=== PATIENT | female | born 1965 | race Caucasian/White ===

== ENCOUNTER 2025-02-01 10:44 | Inpatient (IN) | payer OTHER, SELFPAY ==
[2025-02-01] VITALS (8 sets, daily range): BP systolic 128–160; BP diastolic 68–78; PULSE 54–82; RESP 14–20; TEMP 36.6–36.8; O2SAT 96–98; BMI 18.4
--- NOTE | ~2025-02-01 | XR_ITS ---
EXAMINATION: XR CHEST 1 VIEW HISTORY: sob, swollen legs COMPARISON: There are no prior studies available for comparison. FINDINGS: Two AP portable views of the chest performed at 1:20 PM are submitted. The patient is rotated to the left. The lungs are expanded and clear. There is no pleural effusion, pneumothorax, or pulmonary vascular congestion. The heart is normal in size. There is dextroscoliosis. XR/XR chest 1V IMPRESSION: Clear lungs. Electronically signed by: Ephraim Curtis MD 02/01/2025 01:20 PM MARY
--- NOTE | ~2025-02-01 | US_ITS ---
EXAMINATION: US TRIPLEX LOWER EXTREMITY, BILATERAL CLINICAL INFORMATION: Bilateral lower extremity swelling. COMPARISON: None available. TECHNIQUE: Color-flow triplex imaging with spectral analysis and compression Doppler were performed on the bilateral lower extremities. FINDINGS: Respiratory variation, normal compression and augmented flow are noted throughout the bilateral lower extremities. The visualized common femoral vein, superficial femoral vein, profunda femoral vein, popliteal vein and midcalf peroneal and posterior tibial venous segments show no evidence of deep venous thrombosis bilaterally. There is no Velásquez's cyst. There are reactive appearing lymph nodes in the proximal bilateral thigh regions. US/US venous duplex LE BI IMPRESSION: No evidence of deep venous thrombosis involving the bilateral lower extremities. Electronically signed by: Michael Lynch MD 02/01/2025 02:50 PM MARY
--- NOTE | ~2025-02-01 | CT_ITS ---
CLINICAL HISTORY: + dimer CT angiography chest with contrast. 3D Postprocessing. Comparison: None provided Findings: Calcified coronary atherosclerotic disease. The thoracic aorta is normal caliber. No main or segmental pulmonary emboli identified. Matted lower thoracic paratracheal lymphadenopathy. Hiatal hernia. Mild centrilobular lucencies predominantly upper lobes. No active inflammatory changes. Mild calcified atherosclerotic disease of the abdominal aorta. The bones are intact. Thoracic dextroscoliosis. IMPRESSION: 1. Matted lower thoracic paratracheal reactive lymphadenopathy. 2. Mild centrilobular emphysema. 3. Calcified coronary atherosclerotic disease. 4. Hiatal hernia. 5. Thoracic dextroscoliosis. 6. No main or segmental pulmonary emboli identified This document has been electronically signed by: Reynaldo Casey MD on 02/01/2025 18:26:57
--- NOTE | 2025-02-01 12:03 | ED_ITS ---
HPI - Psych General Chief Complaint: Psychiatric Symptoms Stated Complaint: crisis Time Seen by Provider: 02/01/25 11:54 Source: patient Mode of arrival: ambulatory Limitations: no limitations History of Present Illness ED Provider: JERI Turner HPI Narrative: This is a 59-year-old female past medical history significant for anxiety, depression, substance use disorder who presents to the emergency department with anxiety, depression status post losing her daughter, she tells me that her daughter recently passed secondary to cancer. Since then she has been using drugs she reports using heroin 1-2 bundles per day she last use this morning. She also reports she has been having lower extremity swelling it worsens throughout the day and it is present to bilateral lower extremities. She denies suicidal or homicidal ideation. Denies auditory and visual hallucinations. Denies chest pain, shortness of breath, fevers, chills, nausea, vomiting, abdominal pain, headache, vision changes, dizziness and weakness. Related Data Allergies Allergy/AdvReac Type Severity Reaction Status Date / Time codeine (CODEINE) Allergy Unknown HIVES Verified 02/01/25 11:03 Penicillins Allergy Unknown RASH Unverified 02/01/25 11:03 Review of Systems 2 Review of Systems: Yes all other systems are reviewed and are negative PMFSH Past Medical History Attestation statement: The following information was validated with the patient. Source: old records reviewed and nursing notes reviewed Social History Social History Smoked in Last 30 Days: No Use of substances other than those prescribed or required for medical reasons: Yes Substance Use Type: Heroin Substance Use Frequency: Occasionally Last Used Substance: Just Prior to Admission Advance Directives: No Advance Directives Information Provided: Yes Do you have a plan to hurt others: No Plan Patient : No Physical Exam 2 Exam: Exam: Appearance: Alert.? Oriented X3.? No acute distress.? Head: Normocephalic, atraumatic, no step-offs or deformities Eyes: Pupils equal, round and reactive to light.? ENT: Pharynx normal.? Neck: Normal inspection.? Neck supple.? CVS: Normal heart rate and rhythm.? Pulses normal.? Respiratory: No respiratory distress.? Breath sounds normal.? Abdomen: Soft and nontender.? Skin: Skin warm and dry.? Normal skin color.? Normal skin turgor.? Extremities: 2+ nonpitting edema to bilateral lower extremities with dependent rubor.? No calf ttp. 5/5 strength to bilateral upper and lower extremities Neuro: Oriented X 3.? No motor deficit.? No sensory deficit. CN 2-12 intact Vital Signs: Vital Signs: Last Vital Signs Temp 98.3 F 02/01/25 19:25 Pulse 76 02/01/25 19:25 Resp 18 02/01/25 19:25 BP 146/72 H 02/01/25 19:25 Pulse Ox 98 02/01/25 19:25 O2 Del Method Room Air 02/01/25 19:25 BMI result Body Mass Index 18.4 Vital signs stable Course Reevaluation(s) Reevaluation #1: CBC with leukopenia and normocytic anemia. No previous labs to compare with. Chemistry no acute findings eating intervention. Patient has elevated AST ALT. And a markedly elevated pro BNP. D-dimer is elevated at 405. I did add a troponin, EKG and chest x-ray. Time: 13:02 Reevaluation #2: Patient's EKG shows bradycardia with a rate of 40, there is a second-degree AV block Mobitz type 1. There is ST elevation in the lateral leads most consistent with J-point elevation. Troponin is negative unlikely ACS. Chest x-ray is unremarkable. Time: 14:04 Reevaluation #3: Sign-out will be given to my colleague Zina PAUL Time: 16:36 Additional Reevaluation(s): 1920--BNP elevated 2017.7 > patient states she was told she had CHF a long time ago at [facility], not currently on any diuretics. States her bilateral lower extremity edema is unchanged/actually improved since recently taking prednisone. Lower extremities do not appear acutely cellulitic. No hypoxia. Denies any SOB at present. CXR is clear. CTA is negative for PE. Patient pending CARE team. We will start on Lasix p.o. 20 mg. Physician observation initiated as patient needs more time to be evaluated by CARE team CT angio chest PE protocol IMPRESSION: 1. Matted lower thoracic paratracheal reactive lymphadenopathy. 2. Mild centrilobular emphysema. 3. Calcified coronary atherosclerotic disease. 4. Hiatal hernia. 5. Thoracic dextroscoliosis. 6. No main or segmental pulmonary emboli identified > no previous EKGs to compare. Patient has not been to [facility] since 2018. No EKGs there either. Troponin is unremarkable. -Patient lui be admitted to inpatient psych Medications Administered Generic Name Dose Route Start Last Admin Trade Name Freq PRN Reason Stop Dose Admin Furosemide 20 mg 02/01/25 19:30 02/01/25 20:33 Furosemide 20 Mg Tablet PO 20 mg DAILY CLIFF Administration Protocol Discontinued Medications Generic Name Dose Route Start Last Admin Trade Name Freq PRN Reason Stop Dose Admin Iohexol 100 ml 02/01/25 17:35 02/01/25 17:36 Iohexol 350 Mg/Ml 100 Ml Infus..Btl IV 02/01/25 17:36 65 ml ONCE ONE Administration Medical Decision Making Medical Decision Making [facility] Narrative: 1205 59-year-old female presents with anxiety, depression and relapsed on heroin status post the of her daughter. Physical exam with 2+ nonpitting edema to bilateral lower extremities with dependent rubor. Palpable pulses bilaterally. History and physical exam consistent with complicated grief with substance use disorder. Lower extremity edema likely in the setting of gravity dependent edema. Unlikely arterial or venous occlusion no signs of acute threat to limb. No chest pain or shortness of breath to indicate pulmonary embolism. I do not suspect ACS. Plan labs, urine Differential Diagnosis Differential Diagnoses: The differential diagnosis associated with the presentation includes (History and physical exam consistent with complicated grief with substance use disorder. Lower extremity edema likely in the setting of gravity dependent edema. Unlikely arterial or venous occlusion no signs of acute threat to limb. No chest pain or shortness of breath to indicate pulmonary embol) Admission/Observation Consideration of admission/observation: Escalation of care including admission/observation considered Lab Data [facility] Lab Attestation statement: I reviewed the patient's lab results. 02/01/25 12:12 02/01/25 12:12 Labs: Lab Results 02/01/25 02/01/25 Range/Units 12:12 18:47 WBC 3.7 L (4.8-10.8) X10*3/uL RBC 3.72 L (4.20-5.50) X10*6/uL Hgb 10.9 L (12.0-16.0) g/dl Hct 32.7 L (37.0-47.0) % MCV 87.9 (80.0-98.0) fL MCH 29.3 (27.0-33.0) pg MCHC 33.3 (31.0-35.0) g/dl RDW 13.2 (11.0-16.0) % Plt Count 132 L (160-400) X10*3/uL MPV 9.5 (9.4-12.3) fL Immature Gran % (Auto) 0.3 (0.0-0.4) % Neut % (Auto) 42.2 L (45-73) % Lymph % (Auto) 41.4 H (20-40) % Terrell % (Auto) 9.4 (2-11) % Eos % (Auto) 5.9 H (0-4) % Baso % (Auto) 0.8 (0-2) % Lymph # (Auto) 1.5 (1.2-4.9) X10*3/uL Terrell # (Auto) 0.4 (0.1-1.2) X10*3/uL Eos # (Auto) 0.2 (0.0-0.4) X10*3/uL Baso # (Auto) 0.0 (0.0-0.2) X10*3/uL Abs Immat Gran (auto) 0.01 (0.00-0.03) X10*3/uL Absolute Neuts (auto) 1.6 L (2.0-8.3) x10*3/uL Absolute Nucleated RBC 0.000 (0.0-0.012) X10*3/uL Nucleated RBC % (auto) 0.0 (0.0-0.2) /100WBC D-Dimer High Sensitivty 405 NG/ML Sodium 137 (135-145) mmol/L Potassium 3.7 (3.3-5.1) mmol/L Chloride 107 (96-108) mmol/L Carbon Dioxide 22 (22-29) mmol/L Anion Gap 12 (12-20) BUN 11 (9-16) mg/dL Creatinine 0.67 (0.5-1.4) mg/dL Estim Creat Clear Calc 84.8 Estimated GFR > 60 Random Glucose 162 H (60-115) mg/dL Calcium 8.6 (8.4-10.2) mg/dL Magnesium 1.8 (1.6-2.6) mg/dL Total Bilirubin 0.6 (0.0-1.0) mg/dL AST 74 H (5-31) U/L ALT 46 H (0-31) U/L Alkaline Phosphatase 166 H (39-117) U/L Troponin I High Sens 3.1 (<3.5-17.0) ng/L NT-Pro-B Natriuret Pep 2018.7 H (<300) pg/mL Total Protein 7.2 (6.5-8.0) g/dL Albumin 2.9 L (3.5-5.0) g/dL Urine Color Yellow Urine Appearance Clear Urine pH 7.0 (5.0-9.0) Ur Specific [place] 1.020 (1.005-1.025) Urine Protein Negative (Neg-Trace) mg/dL Urine Glucose (UA) Negative (Negative) mg/dL Urine Ketones Negative (Negative) mg/dL Urine Blood Negative (Negative) Urine Nitrite Negative (Negative) Ur Leukocyte Esterase Negative (Negative) Salicylates < 5.0 L (15-30) mg/dL Urine Opiates Screen Not Detected (Not Detect) Ur Buprenorphine Scrn Not Detected (Not Detect) ng/mL Ur Oxycodone Screen Not Detected (Not Detect) ng/mL Urine Methadone Screen Not Detected (Not Detect) ng/mL Urine Fentanyl Screen POSITIVE H (Not Detect) Acetaminophen < 3 (<30) mcg/mL Ur Barbiturates Screen Not Detected (Not Detect) Ur Phencyclidine Scrn Not Detected (Not Detect) Ur Amphetamines Screen Not Detected (Not Detect) U Benzodiazepines Scrn Not Detected (Not Detect) Urine Cocaine Screen POSITIVE H (Not Detect) U Marijuana (THC) Screen Not Detected (Not Detect) Independent Interpretation I performed an independent interpretation of an: EKG (bradycardia with a rate of 40, there is a second-degree AV block Mobitz type 1. There is ST elevation in the lateral leads most consistent with J-point elevation. non diagnostic for cc ) Critical Care Time Critical Care Time Critical Care Time: Yes Total Critical Care Time: 35 Attestation: I attest to this time spent taking care of the patient, obtaining history, physical, reviewing labs, imaging, treatment of patients condition +/- specialist/hospitalist consult +/- procedure Discharge Plan Discharge Clinical Impression: Steven I, Swelling of both lower extremities, Substance abuse, Depression Patient Disposition: Admitted As [facility] Last Done: 02/01/25 11:35 Admission Worksheet (ED) Last Done: 02/01/25 20:36
[2025-02-01 12:16] LABS: MANUAL DIFF FLAG NO
[2025-02-01 12:27] LABS: Hematocrit 32.7 % (37.0-47.0); Hemoglobin 10.9 g/dl (12.0-16.0); Imm Gran Abs Auto 0.01 X10*3/uL (0.00-0.03); Imm Gran Pct Auto 0.3 % (0.0-0.4); Lymphocytes Absolute Auto 1.5 X10*3/uL (1.2-4.9); Mean Corpuscular HGB Conc 33.3 g/dl (31.0-35.0); Mean Corpuscular Hemoglobin 29.3 pg (27.0-33.0); Mean Corpuscular Volume 87.9 fL (80.0-98.0); NRBC Abs Auto 0.000 X10*3/uL (0.0-0.012); NRBC Pct Auto 0.0 /100WBC (0.0-0.2); Platelet Count 132 X10*3/uL (160-400); Red Blood Count 3.72 X10*6/uL (4.20-5.50); White Blood Count 3.7 X10*3/uL (4.8-10.8)
[2025-02-01 12:37] LABS: Acetaminophen LAB < 3 mcg/mL (<30); Alanine Aminotransferase 46 U/L (0-31); Albumin Level 2.9 g/dL (3.5-5.0); Alkaline Phosphatase 166 U/L (39-117); Anion Gap 12 (12-20); Aspartate Amino Transferase 74 U/L (5-31); Blood Urea Nitrogen 11 mg/dL (9-16); Calcium 8.6 mg/dL (8.4-10.2); Carbon Dioxide 22 mmol/L (22-29); Chloride 107 mmol/L (96-108); Creatinine Clr Calc Pharmacy 84.8; Estimated Glomerular Filt Rate > 60; Magnesium 1.8 mg/dL (1.6-2.6); Potassium 3.7 mmol/L (3.3-5.1); Salicylate < 5.0 mg/dL (15-30); Sodium 137 mmol/L (135-145); Total Protein 7.2 g/dL (6.5-8.0)
[2025-02-01 12:44] LABS: NT Pro B Type Natriuretic Pept 2018.7 pg/mL (<300)
[2025-02-01 12:58] LABS: D Dimer High Sensitivity 405 NG/ML
--- NOTE | 2025-02-01 13:01 | ECG_ITS ---
Test Reason : SOB Blood Pressure : */* mmHG Vent. Rate : 40 BPM Atrial Rate : 54 BPM P-R Int : * ms QRS Dur : 96 ms QT Int : 538 ms P-R-T Axes : 81 69 54 degrees QTcB Int : 438 ms Sinus bradycardia with 2nd degree A-V block (Mobitz I) Abnormal ECG No previous ECGs available Referred By: Vi Turner Electronically Signed By: Yann Gaxiola
[2025-02-01 13:28] LABS: Troponin-I High Sensitivity 3.1 ng/L (<3.5-17.0)
[2025-02-01] MEDS: iohexoL 350 MG/ML 100 ML INFUS..BTL IV (17:36)
[2025-02-01 19:05] LABS: Cannabinoid Screen Urine Not Detected (Not Detect)
[2025-02-01 19:14] LABS: Appearance Urine Clear; Glucose Urine UA Negative (Negative); PH 7.0 (5.0-9.0); Specific Gravity - Urine 1.020 (1.005-1.025)
--- NOTE | 2025-02-01 20:06 | PC.NURSE ---
med rec completed with pt, does not take any home medications at this time
--- NOTE | 2025-02-01 20:38 | MHC.CARE ---
Pt made aware she was being admitted to , Pt was receptive. T/W provided Pt bereavement resources for [facility] and [facility].
--- NOTE | 2025-02-01 21:33 | PHA.MEDREC ---
Addendum entered by Britney Yi RPh 02/01/25 21:34: Reviewed by [facility] Original Note: Pharmacy Consult ? Medication Reconciliation Pharmacy has completed the medication reconciliation. Patient states she is not on any medications.
--- NOTE | 2025-02-01 21:57 | PC.NURSE ---
pt on the phone talking to a friend. 10 minutes after she hung up she c/o w/d sx. COWS completed score of 10. pt medicated per MAR. pt also reporting menopause sx as well contributing to sweating and restlessness.
--- NOTE | 2025-02-01 22:28 | PC.NURSE ---
2100 baclofen unavailable in ED. pt moving upstairs to M5
[2025-02-02] MEDS: Magnesium Hydrox/Alum Hydrox 30 ML ORAL.SUSP PO (03:50)
--- NOTE | 2025-02-02 05:22 | PC.NURSE ---
Patient immediately vomited up a 1 mg Ativan administered at this time.
--- NOTE | 2025-02-02 05:52 | PC.ADMIT ---
Karen Bob was admitted at 2230 to on a CV with 15 minute checks from the [facility]. She recently lost her daughter to cancer. This caused heightened depression and anxiety, as well as a relapse on fentanyl (which she thought was heroin.) Her tox screen was also positive for cocaine, which she denies using. She has scoliosis, and bilateral lower leg edema and reddening. She has bradycardia and a Mobitz I AV block. She is amenable to a flu shot, and accepts NRT and Quitworks as she smokes up to 1 ppd. She is struggling with nausea, vomiting, and diarrhea due to her withdrawal. Zofran was not effective. Please expedite Recovery Program to ensure she is given MAT as soon as possible to relieve her symptoms.
--- NOTE | 2025-02-02 07:05 | HO.PSYADMNOT ---
HPI Date of Service: 02/02/25 Chief Complaint: Worsening depression and anxiety Sources of Information: patient interviewed, chart reviewed and crisis/core team assessment reviewed HPI Subjective Notes: Conditional Voluntary Medical Problems Affecting Mental Status: No Narrative: As per ED Provider Note 02/01/25: 59-year-old female past medical history significant for anxiety, depression, substance use disorder who presents to the emergency department with anxiety, depression status post losing her daughter, she tells me that her daughter recently passed secondary to cancer. Since then she has been using drugs she reports using heroin 1-2 bundles per day she last use this morning. She also reports she has been having lower extremity swelling it worsens throughout the day and it is present to bilateral lower extremities. She denies suicidal or homicidal ideation. Denies auditory and visual hallucinations. SRIKANTHS rufina 02/01/25: Lost only child after 5 year cancer padilla. Now has custody of 2 grandchildren aged 14 and 10. Relapsed 6 weeks ago after being sober since 2002. No outpatient services. Today: Patient presents with opiate withdrawal symptoms. Vomiting. Body aches, rhinorrhea etc.. Endorses feeling depressed, poor sleep, energy appetite motivation. Denies active SI. Has not been caring for herself well and does have poor self-care . Denied HI. Denied psychosis.. There is some limited engagement in evaluation due to current withdrawal symptoms . Endorses relapsing with heroin by intravenous use around 6 weeks ago. Tox screen positive for cocaine but reports that is not something she usually uses and therefore likely a contaminant with heroin or fentanyl that patient was injecting. Reports wanting help with therapy and medications if indicated. Reports being open to Suboxone or methadone long-term, but wants to get through acute detox 1st. Did show some response to methadone 40 mg 1 time dose along with comfort medications including clonidine, Zofran etc.. Is open to rehab services as per care's evaluation. Significant stressor was the loss of her daughter to cancer in April 2024. custody 14-year-old and 10-year-old grand children. Living alone. Regarding grandchildren, reports they are currently staying with their biological father. Past Psychiatric History: Denied. No current providers. Medical Evaluation Reviewed: Yes PMFSH Social History: Lives alone. Unemployed. No legal issues. Daughter from cancer in April 2024 and patient has custody of 14-year-old and 10-year-old grand children are currently staying with their biological father while patient is in hospital. Substance History: opiate use disorder. Was sober from 2002 up until 6 weeks ago. Using 1-2 bundles per day intravenously. Trauma History: Lost daughter to cancer in April this year Diagnostics Vital Signs (24Hr): Vital Signs - 24 hr 02/01/25 10:55 02/01/25 11:35 02/01/25 13:51 Temperature 97.8 F 98.2 F Pulse Rate 54 78 79 Respiratory Rate 18 14 15 Blood Pressure 153/68 H 132/74 128/72 Pulse Oximetry 96 97 97 Oxygen Delivery Method Room Air Room Air Room Air 02/01/25 17:46 02/01/25 19:12 02/01/25 19:25 Temperature 98.3 F Pulse Rate 82 80 76 Respiratory Rate 16 14 18 Blood Pressure 132/74 137/78 146/72 H Pulse Oximetry 97 97 98 Oxygen Delivery Method Room Air Room Air Room Air 02/01/25 21:56 Temperature Pulse Rate 74 Respiratory Rate 20 Blood Pressure 160/75 H Pulse Oximetry 98 Oxygen Delivery Method Room Air BMI result Body Mass Index 18.4 Labs 02/01/25 12:12 02/01/25 12:12 Labs: Laboratory Results - last 48 hr 02/01/25 02/01/25 12:12 18:47 WBC 3.7 L RBC 3.72 L Hgb 10.9 L Hct 32.7 L MCV 87.9 MCH 29.3 MCHC 33.3 RDW 13.2 Plt Count 132 L MPV 9.5 Immature Gran % (Auto) 0.3 Neut % (Auto) 42.2 L Lymph % (Auto) 41.4 H Cottle % (Auto) 9.4 Eos % (Auto) 5.9 H Baso % (Auto) 0.8 Lymph # (Auto) 1.5 Cottle # (Auto) 0.4 Eos # (Auto) 0.2 Baso # (Auto) 0.0 Abs Immat Gran (auto) 0.01 Absolute Neuts (auto) 1.6 L Absolute Nucleated RBC 0.000 Nucleated RBC % (auto) 0.0 D-Dimer High Sensitivty 405 Sodium 137 Potassium 3.7 Chloride 107 Carbon Dioxide 22 Anion Gap 12 BUN 11 Creatinine 0.67 Estim Creat Clear Calc 84.8 Estimated GFR > 60 Random Glucose 162 H Calcium 8.6 Magnesium 1.8 Total Bilirubin 0.6 AST 74 H ALT 46 H Alkaline Phosphatase 166 H Troponin I High Sens 3.1 NT-Pro-B Natriuret Pep 2018.7 H Total Protein 7.2 Albumin 2.9 L Urine Color Yellow Urine Appearance Clear Urine pH 7.0 Ur Specific [place] 1.020 Urine Protein Negative Urine Glucose (UA) Negative Urine Ketones Negative Urine Blood Negative Urine Nitrite Negative Ur Leukocyte Esterase Negative Salicylates < 5.0 L Urine Opiates Screen Not Detected Ur Buprenorphine Scrn Not Detected Ur Oxycodone Screen Not Detected Urine Methadone Screen Not Detected Urine Fentanyl Screen POSITIVE H Acetaminophen < 3 Ur Barbiturates Screen Not Detected Ur Phencyclidine Scrn Not Detected Ur Amphetamines Screen Not Detected U Benzodiazepines Scrn Not Detected Urine Cocaine Screen POSITIVE H U Marijuana (THC) Screen Not Detected Imaging Radiology Impressions: ITS Impressions Chest X-Ray 02/01/25 13:10 IMPRESSION: Clear lungs. Electronically signed by: Ephraim Curtis MD 02/01/2025 01:20 PM EST RP Venous Duplex 02/01/25 13:56 IMPRESSION: No evidence of deep venous thrombosis involving the bilateral lower extremities. Electronically signed by: Michael Lynch MD 02/01/2025 02:50 PM EST RP Meds/Allergies Meds Home Medications ?Medication ?Instructions ?Recorded ?Confirmed ?Type No Known Home Meds 02/01/25 02/01/25 History Allergies Allergies Allergy/AdvReac Type Severity Reaction Status Date / Time codeine (CODEINE) Allergy Unknown HIVES Verified 02/01/25 11:03 Penicillins Allergy Unknown RASH Verified 02/02/25 11:19 Mental Status Exam Mental Status Exam Narrative: In bed. Hospital clothing. Poor self-care. Obvious opiate withdrawal with rhinorrhea, gooseflesh, nausea and vomiting. Endorses depression. No SI. No HI. No agitation. No psychosis. Insight and judgment okay and wants help Assessment & Plan Assessment & Plan (1) Opioid use disorder: Status: Acute Code(s): F11.90 - Opioid use, unspecified, uncomplicated (2) Depression: Status: Acute Code(s): F32.A - Depression, unspecified Plan 59-year-old female, voluntary admission for evaluation of depression, inability to care for self, opioid use disorder in this context of significant psychosocial stressors. No outpatient providers. Eager for engagement help. Currently in active opiate withdrawals. Will place on methadone taper. Review need for psychotropic medications when add acute detox. Is open to substance rehab program. Patient educated on: substance abuse Informed Consent: understands Reason for continued inpatient stay Substantial Risk for: inability to function Statement Statement: I have reviewed the history and physical and performed a pertinent examination on my patient. No changes have occurred unless specified. If the History and Physical was not performed prior to admission, the Hospitalist's service will be consulted for completing the admission physical. Time Spent With Patient Time: Total time managing care of this patient today ____ minutes.
[2025-02-02 08:00] VITALS: BP 186/83; PULSE 66; RESP 18; TEMP 36.6; O2SAT 97
[2025-02-02 08:38] VITALS: BP 186/63
[2025-02-02] MEDS: methADONE HCl 20 MG/2 ML ORAL.CONC 40 MG PO (08:58)
[2025-02-02 16:18] VITALS: BP 142/76; PULSE 96; RESP 18
[2025-02-02 20:00] VITALS: BP 157/77; PULSE 107; RESP 20; TEMP 37.7; O2SAT 97
--- NOTE | 2025-02-03 | ECG_ITS ---
Test Reason : Seizure Blood Pressure : */* mmHG Vent. Rate : 113 BPM Atrial Rate : 113 BPM P-R Int : 162 ms QRS Dur : 86 ms QT Int : 338 ms P-R-T Axes : 87 87 77 degrees QTcB Int : 463 ms Sinus tachycardia Right atrial enlargement Borderline ECG When compared with ECG of 01-Feb-2025 13:44, Sinus rhythm is no longer with 2nd degree A-V block (Mobitz I) Vent. rate has increased by 73 bpm T wave inversion no longer evident in Anterior leads Referred By: Chayo Calderon Electronically Signed By: Yann Gaxiola
[2025-02-03 02:01] VITALS: BP 148/70; PULSE 100
[2025-02-03 08:00] VITALS: BP 123/76; PULSE 123; RESP 20; TEMP 36.9; O2SAT 97
--- NOTE | 2025-02-03 08:01 | HO.PSYCHPN ---
Subjective Subjective Date of Service: 02/03/25 Reason For Visit: Worsening depression and anxiety Diagnostics Vital Signs (24Hr): Vital Signs - 24 hr 02/02/25 08:38 02/02/25 16:18 02/02/25 20:00 Temperature 99.9 F Pulse Rate 96 107 H Respiratory Rate 18 20 Blood Pressure 186/63 H 142/76 H 157/77 H Pulse Oximetry 97 Oxygen Delivery Method Room Air 02/03/25 02:01 02/03/25 08:00 Temperature 98.4 F Pulse Rate 100 123 H Respiratory Rate 20 Blood Pressure 148/70 H 123/76 Pulse Oximetry 97 Oxygen Delivery Method Room Air BMI result Body Mass Index 18.4 Labs 02/01/25 12:12 02/01/25 12:12 Labs: Laboratory Results - last 48 hr 02/01/25 02/01/25 12:12 18:47 WBC 3.7 L RBC 3.72 L Hgb 10.9 L Hct 32.7 L MCV 87.9 MCH 29.3 MCHC 33.3 RDW 13.2 Plt Count 132 L MPV 9.5 Immature Gran % (Auto) 0.3 Neut % (Auto) 42.2 L Lymph % (Auto) 41.4 H [place] % (Auto) 9.4 Eos % (Auto) 5.9 H Baso % (Auto) 0.8 Lymph # (Auto) 1.5 [place] # (Auto) 0.4 Eos # (Auto) 0.2 Baso # (Auto) 0.0 Abs Immat Gran (auto) 0.01 Absolute Neuts (auto) 1.6 L Absolute Nucleated RBC 0.000 Nucleated RBC % (auto) 0.0 D-Dimer High Sensitivty 405 Sodium 137 Potassium 3.7 Chloride 107 Carbon Dioxide 22 Anion Gap 12 BUN 11 Creatinine 0.67 Estim Creat Clear Calc 84.8 Estimated GFR > 60 Random Glucose 162 H Calcium 8.6 Magnesium 1.8 Total Bilirubin 0.6 AST 74 H ALT 46 H Alkaline Phosphatase 166 H Troponin I High Sens 3.1 NT-Pro-B Natriuret Pep 2018.7 H Total Protein 7.2 Albumin 2.9 L Urine Color Yellow Urine Appearance Clear Urine pH 7.0 Ur Specific Antoine 1.020 Urine Protein Negative Urine Glucose (UA) Negative Urine Ketones Negative Urine Blood Negative Urine Nitrite Negative Ur Leukocyte Esterase Negative Salicylates < 5.0 L Urine Opiates Screen Not Detected Ur Buprenorphine Scrn Not Detected Ur Oxycodone Screen Not Detected Urine Methadone Screen Not Detected Urine Fentanyl Screen POSITIVE H Acetaminophen < 3 Ur Barbiturates Screen Not Detected Ur Phencyclidine Scrn Not Detected Ur Amphetamines Screen Not Detected U Benzodiazepines Scrn Not Detected Urine Cocaine Screen POSITIVE H U Marijuana (THC) Screen Not Detected Imaging Radiology Impressions: ITS Impressions Chest X-Ray 02/01/25 13:10 IMPRESSION: Clear lungs. Electronically signed by: Ephraim Curtis MD 02/01/2025 01:20 PM EST RP Venous Duplex 02/01/25 13:56 IMPRESSION: No evidence of deep venous thrombosis involving the bilateral lower extremities. Electronically signed by: Michael Lynch MD 02/01/2025 02:50 PM EST RP Medications Medications Current Medications Acetaminophen (Acetaminophen 325 Mg Tablet) 650 mg PO Q6H PRN PRN Reason: Headache/Pain, Scale 1-10 Last Admin: 02/02/25 21:59 Dose: 650 mg Al Hydroxide/Mg Hydroxide (Magnesium Hydrox/Alum Hydrox 30 Ml Oral.Susp) 30 ml PO Q6H PRN PRN Reason: Heartburn/Nausea Last Admin: 02/02/25 03:50 Dose: 30 ml Baclofen (Baclofen 10 Mg Tablet) 10 mg PO BID CLIFF Last Admin: 02/02/25 22:00 Dose: 10 mg Clonidine HCl (Clonidine Hcl 0.1 Mg Tablet) 0.1 mg PO TID PRN; Protocol PRN Reason: Opiate W/D symptoms Last Admin: 02/03/25 01:11 Dose: 0.1 mg Furosemide (Furosemide 20 Mg Tablet) 20 mg PO DAILY CLIFF; Protocol Last Admin: 02/02/25 08:38 Dose: 20 mg Hydroxyzine HCl (Hydroxyzine Hcl 25 Mg Tablet) 25 mg PO Q6H PRN PRN Reason: mild anxiety Last Admin: 02/03/25 01:11 Dose: 25 mg Magnesium Hydroxide (Milk Of Magnesia 30 Ml Oral.Susp) 30 ml PO DAILY PRN PRN Reason: Constipation Methadone HCl (Methadone Hcl 20 Mg/2 Ml Oral.Conc) 30 mg PO DAILY@0800 ONE Stop: 02/03/25 08:01 Nicotine (Nicotine 21 Mg Patch.Td24) 21 mg TRANSDERMA DAILY PRN PRN Reason: nicotine craving Nicotine Polacrilex (Nicotine Polacrilex 2 Mg Gum) 2 mg BUCCAL Q2H PRN PRN Reason: Nicotine Cravings Olanzapine (Olanzapine 5 Mg Tablet) 5 mg PO BID PRN PRN Reason: agitation/severe anxiety Last Admin: 02/02/25 21:59 Dose: 5 mg Ondansetron HCl (Ondansetron Odt 8 Mg Tab.Rapdis) 8 mg TRANSLINGU Q8H PRN PRN Reason: Nausea and Vomiting Last Admin: 02/03/25 01:11 Dose: 8 mg Trazodone HCl (Trazodone Hcl 50 Mg Tablet) 50 mg PO BEDTIME PRN PRN Reason: Insomnia Last Admin: 02/03/25 01:11 Dose: 50 mg Allergies Allergies Allergy/AdvReac Type Severity Reaction Status Date / Time codeine (CODEINE) Allergy Unknown HIVES Verified 02/01/25 11:03 Penicillins Allergy Unknown RASH Verified 02/02/25 11:19 Assessment & Plan Assessment & Plan (1) Opioid use disorder: Status: Acute Code(s): F11.90 - Opioid use, unspecified, uncomplicated (2) Depression: Status: Acute Code(s): F32.A - Depression, unspecified Plan 59-year-old female, voluntary admission for evaluation of depression, inability to care for self, opioid use disorder in this context of significant psychosocial stressors. No outpatient providers. Eager for engagement help. Currently in active opiate withdrawals. Will place on methadone taper. Review need for psychotropic medications when add acute detox. Is open to substance rehab program. Time Spent With Patient Time: Total time managing care of this patient today ____ minutes.
[2025-02-03 08:15] LABS: Glucose, Whole Blood 138 mg/dL (60-115)
[2025-02-03 08:55] VITALS: BP 125/65; PULSE 88; RESP 16; TEMP 36.3; O2SAT 96
[2025-02-03 09:20] LABS: MANUAL DIFF FLAG NO
[2025-02-03 09:23] LABS: Hematocrit 35.6 % (37.0-47.0); Hemoglobin 11.9 g/dl (12.0-16.0); Imm Gran Abs Auto 0.02 X10*3/uL (0.00-0.03); Imm Gran Pct Auto 0.4 % (0.0-0.4); Lymphocytes Absolute Auto 1.2 X10*3/uL (1.2-4.9); Mean Corpuscular HGB Conc 33.4 g/dl (31.0-35.0); Mean Corpuscular Hemoglobin 29.8 pg (27.0-33.0); Mean Corpuscular Volume 89.0 fL (80.0-98.0); NRBC Abs Auto 0.000 X10*3/uL (0.0-0.012); NRBC Pct Auto 0.0 /100WBC (0.0-0.2); Platelet Count 206 X10*3/uL (160-400); Red Blood Count 4.00 X10*6/uL (4.20-5.50); White Blood Count 5.6 X10*3/uL (4.8-10.8)
--- NOTE | 2025-02-03 09:23 | PC.NURSE ---
After report this morning TW went to check in with patient as she was complaining of weakness and inability to even stand up when trying. She reports she had not eaten in 4 days and has had very little to drink. Provider Dominga notified and asked for Hospitalist consult and labs. Upon returning to pt room to administer Methadone with other RN she was noted sitting up in bed and when she went to take cup she fell backwards onto the bed and became unresponsive. Rapid response called and VS obtained, Provider Kvng Beard Michelle S RN supervisor hairspring fabrication all at bedside. Pt POC 137, and VS 123/78, pulse 128, oxygen saturation on RA 97% and afebrile. IV access 22gauge established to right UE She was noted to be having some myoclonic movement and eye fluttering but team did not feel this was seizure activity. Pupils were equal and reactive 4mm. Shortly after DRIVER EXAMINER called pt became more responsive, able to verbalize and talk, EKG obtained and NSR, transferred to Med/Tele floor and report called once RN care determined for her. Discharged from .
[2025-02-03 09:48] LABS: Troponin-I High Sensitivity 39.4 ng/L (<3.5-17.0)
[2025-02-03 10:03] LABS: Alanine Aminotransferase 39 U/L (0-31); Albumin Level 3.8 g/dL (3.5-5.0); Alkaline Phosphatase 173 U/L (39-117); Anion Gap 14 (12-20); Aspartate Amino Transferase 58 U/L (5-31); Blood Urea Nitrogen 18 mg/dL (9-16); Calcium 9.2 mg/dL (8.4-10.2); Carbon Dioxide 29 mmol/L (22-29); Chloride 106 mmol/L (96-108); Cholesterol 137 mg/dL (<200); Creatinine Clr Calc Pharmacy 71.1; Estimated Glomerular Filt Rate > 60; HDL Cholesterol 57 mg/dL (>40); Potassium 3.3 mmol/L (3.3-5.1); Sodium 146 mmol/L (135-145); Total Protein 8.6 g/dL (6.5-8.0); Triglycerides 65 mg/dL (<150)
[2025-02-03] MEDS: methADONE HCl 20 MG/2 ML ORAL.CONC 30 MG PO (10:04)
[2025-02-03 10:18] LABS: Free T4 (Free Thyroxine) 1.11 ng/dL (0.71-1.85); Thyroid Stimulating Hormone 0.23 uIU/mL (0.32-4.0)
[2025-02-03 10:20] LABS: Folate 6.3 ng/mL (> or = 4.0); Vitamin B12 640 pg/mL (200-900)
--- NOTE | 2025-02-03 10:41 | PM.PSYDC ---
DS: Providers Provider Date of Service: 02/03/25 Date of admission: 02/01/25 20:26 Date of discharge: 02/03/25 Primary care physician: Ashia Antonio NP Consults: 02/01/25 20:28 Addiction Medicine Provider Routine Consulting Provider: Addiction Covering Reason for consultation: Using FEN for a couple moths. Has provider been notified: No DS: Diagnosis Discharge Diagnosis (1) Opioid use disorder: Status: Acute (2) Depression: Status: Acute DS: Medications Discharge Medications Home Medications: Home Medications ?Medication ?Instructions ?Recorded ?Confirmed No Known Home Meds 02/01/25 02/01/25 Data Data Completed and Pending Completed studies during hospitalization [Text1]: 02/01/25 02/01/25 02/03/25 12:12 18:47 08:12 WBC 3.7 L RBC 3.72 L Hgb 10.9 L Hct 32.7 L MCV 87.9 MCH 29.3 MCHC 33.3 RDW 13.2 Plt Count 132 L MPV 9.5 Immature Gran % (Auto) 0.3 Neut % (Auto) 42.2 L Lymph % (Auto) 41.4 H [place] % (Auto) 9.4 Eos % (Auto) 5.9 H Baso % (Auto) 0.8 Lymph # (Auto) 1.5 [place] # (Auto) 0.4 Eos # (Auto) 0.2 Baso # (Auto) 0.0 Abs Immat Gran (auto) 0.01 Absolute Neuts (auto) 1.6 L Absolute Nucleated RBC 0.000 Nucleated RBC % (auto) 0.0 D-Dimer High Sensitivty 405 Sodium 137 Potassium 3.7 Chloride 107 Carbon Dioxide 22 Anion Gap 12 BUN 11 Creatinine 0.67 Estim Creat Clear Calc 84.8 Estimated GFR > 60 POC Glucose 138 H Random Glucose 162 H Estimat Average Glucose Hemoglobin A1c % Lactic Acid Calcium 8.6 Phosphorus Magnesium 1.8 Total Bilirubin 0.6 AST 74 H ALT 46 H Alkaline Phosphatase 166 H Troponin I High Sens 3.1 NT-Pro-B Natriuret Pep 2018.7 H Total Protein 7.2 Albumin 2.9 L Triglycerides Cholesterol LDL Cholesterol, Calc HDL Cholesterol Vitamin B12 Folate TSH Free T4 Urine Color Yellow Urine Appearance Clear Urine pH 7.0 Ur Specific [place] 1.020 Urine Protein Negative Urine Glucose (UA) Negative Urine Ketones Negative Urine Blood Negative Urine Nitrite Negative Ur Leukocyte Esterase Negative Salicylates < 5.0 L Urine Opiates Screen Not Detected Ur Buprenorphine Scrn Not Detected Ur Oxycodone Screen Not Detected Urine Methadone Screen Not Detected Urine Fentanyl Screen POSITIVE H Acetaminophen < 3 Ur Barbiturates Screen Not Detected Ur Phencyclidine Scrn Not Detected Ur Amphetamines Screen Not Detected U Benzodiazepines Scrn Not Detected Urine Cocaine Screen POSITIVE H U Marijuana (THC) Screen Not Detected Hepatitis A IgM Ab Hep Bs Antigen Hep Bs Antibody Hep B Core Total Ab Hepatitis C Ab (EIA) HIV 1&2 Ab/P24 Ag 4thGn 02/03/25 02/03/25 02/03/25 09:07 09:07 09:07 WBC 5.6 Cancelled RBC 4.00 L Cancelled Hgb 11.9 L Hct MCV MCH MCHC RDW Plt Count MPV Immature Gran % (Auto) Neut % (Auto) Lymph % (Auto) [place] % (Auto) Eos % (Auto) Baso % (Auto) Lymph # (Auto) [place] # (Auto) Eos # (Auto) Baso # (Auto) Abs Immat Gran (auto) Absolute Neuts (auto) Absolute Nucleated RBC Nucleated RBC % (auto) D-Dimer High Sensitivty Sodium Potassium Chloride Carbon Dioxide Anion Gap BUN Creatinine Estim Creat Clear Calc Estimated GFR POC Glucose Random Glucose Estimat Average Glucose Hemoglobin A1c % Lactic Acid Calcium Phosphorus Magnesium Total Bilirubin AST ALT Alkaline Phosphatase Troponin I High Sens NT-Pro-B Natriuret Pep Total Protein Albumin Triglycerides Cholesterol LDL Cholesterol, Calc HDL Cholesterol Vitamin B12 Folate TSH Free T4 Urine Color Urine Appearance Urine pH Ur Specific [place] Urine Protein Urine Glucose (UA) Urine Ketones Urine Blood Urine Nitrite Ur Leukocyte Esterase Salicylates Urine Opiates Screen Ur Buprenorphine Scrn Ur Oxycodone Screen Urine Methadone Screen Urine Fentanyl Screen Acetaminophen Ur Barbiturates Screen Ur Phencyclidine Scrn Ur Amphetamines Screen U Benzodiazepines Scrn Urine Cocaine Screen U Marijuana (THC) Screen Hepatitis A IgM Ab Hep Bs Antigen Hep Bs Antibody Hep B Core Total Ab Hepatitis C Ab (EIA) HIV 1&2 Ab/P24 Ag 4thGn 02/03/25 02/03/25 02/03/25 09:07 09:07 09:07 WBC RBC Hgb Cancelled Hct 35.6 L Cancelled MCV 89.0 Cancelled MCH 29.8 MCHC RDW Plt Count MPV Immature Gran % (Auto) Neut % (Auto) Lymph % (Auto) [place] % (Auto) Eos % (Auto) Baso % (Auto) Lymph # (Auto) [place] # (Auto) Eos # (Auto) Baso # (Auto) Abs Immat Gran (auto) Absolute Neuts (auto) Absolute Nucleated RBC Nucleated RBC % (auto) D-Dimer High Sensitivty Sodium Potassium Chloride Carbon Dioxide Anion Gap BUN Creatinine Estim Creat Clear Calc Estimated GFR POC Glucose Random Glucose Estimat Average Glucose Hemoglobin A1c % Lactic Acid Calcium Phosphorus Magnesium Total Bilirubin AST ALT Alkaline Phosphatase Troponin I High Sens NT-Pro-B Natriuret Pep Total Protein Albumin Triglycerides Cholesterol LDL Cholesterol, Calc HDL Cholesterol Vitamin B12 Folate TSH Free T4 Urine Color Urine Appearance Urine pH Ur Specific [place] Urine Protein Urine Glucose (UA) Urine Ketones Urine Blood Urine Nitrite Ur Leukocyte Esterase Salicylates Urine Opiates Screen Ur Buprenorphine Scrn Ur Oxycodone Screen Urine Methadone Screen Urine Fentanyl Screen Acetaminophen Ur Barbiturates Screen Ur Phencyclidine Scrn Ur Amphetamines Screen U Benzodiazepines Scrn Urine Cocaine Screen U Marijuana (THC) Screen Hepatitis A IgM Ab Hep Bs Antigen Hep Bs Antibody Hep B Core Total Ab Hepatitis C Ab (EIA) HIV 1&2 Ab/P24 Ag 4thGn 02/03/25 02/03/25 02/03/25 09:07 09:07 09:07 WBC RBC Hgb Hct MCV MCH Cancelled MCHC 33.4 Cancelled RDW 13.8 Cancelled Plt Count 206 D MPV Immature Gran % (Auto) Neut % (Auto) Lymph % (Auto) [place] % (Auto) Eos % (Auto) Baso % (Auto) Lymph # (Auto) [place] # (Auto) Eos # (Auto) Baso # (Auto) Abs Immat Gran (auto) Absolute Neuts (auto) Absolute Nucleated RBC Nucleated RBC % (auto) D-Dimer High Sensitivty Sodium Potassium Chloride Carbon Dioxide Anion Gap BUN Creatinine Estim Creat Clear Calc Estimated GFR POC Glucose Random Glucose Estimat Average Glucose Hemoglobin A1c % Lactic Acid Calcium Phosphorus Magnesium Total Bilirubin AST ALT Alkaline Phosphatase Troponin I High Sens NT-Pro-B Natriuret Pep Total Protein Albumin Triglycerides Cholesterol LDL Cholesterol, Calc HDL Cholesterol Vitamin B12 Folate TSH Free T4 Urine Color Urine Appearance Urine pH Ur Specific [place] Urine Protein Urine Glucose (UA) Urine Ketones Urine Blood Urine Nitrite Ur Leukocyte Esterase Salicylates Urine Opiates Screen Ur Buprenorphine Scrn Ur Oxycodone Screen Urine Methadone Screen Urine Fentanyl Screen Acetaminophen Ur Barbiturates Screen Ur Phencyclidine Scrn Ur Amphetamines Screen U Benzodiazepines Scrn Urine Cocaine Screen U Marijuana (THC) Screen Hepatitis A IgM Ab Hep Bs Antigen Hep Bs Antibody Hep B Core Total Ab Hepatitis C Ab (EIA) HIV 1&2 Ab/P24 Ag 4thGn 02/03/25 02/03/25 02/03/25 09:07 09:07 09:07 WBC RBC Hgb Hct MCV MCH MCHC RDW Plt Count Cancelled MPV 8.9 L Cancelled Immature Gran % (Auto) 0.4 Neut % (Auto) 69.6 Lymph % (Auto) 21.0 [place] % (Auto) 8.8 Eos % (Auto) 0.0 Baso % (Auto) 0.2 Lymph # (Auto) 1.2 [place] # (Auto) 0.5 Eos # (Auto) 0.0 Baso # (Auto) 0.0 Abs Immat Gran (auto) 0.02 Absolute Neuts (auto) 3.9 Absolute Nucleated RBC 0.000 Cancelled Nucleated RBC % (auto) 0.0 D-Dimer High Sensitivty Sodium Potassium Chloride Carbon Dioxide Anion Gap BUN Creatinine Estim Creat Clear Calc Estimated GFR POC Glucose Random Glucose Estimat Average Glucose Hemoglobin A1c % Lactic Acid Calcium Phosphorus Magnesium Total Bilirubin AST ALT Alkaline Phosphatase Troponin I High Sens NT-Pro-B Natriuret Pep Total Protein Albumin Triglycerides Cholesterol LDL Cholesterol, Calc HDL Cholesterol Vitamin B12 Folate TSH Free T4 Urine Color Urine Appearance Urine pH Ur Specific [place] Urine Protein Urine Glucose (UA) Urine Ketones Urine Blood Urine Nitrite Ur Leukocyte Esterase Salicylates Urine Opiates Screen Ur Buprenorphine Scrn Ur Oxycodone Screen Urine Methadone Screen Urine Fentanyl Screen Acetaminophen Ur Barbiturates Screen Ur Phencyclidine Scrn Ur Amphetamines Screen U Benzodiazepines Scrn Urine Cocaine Screen U Marijuana (THC) Screen Hepatitis A IgM Ab Hep Bs Antigen Hep Bs Antibody Hep B Core Total Ab Hepatitis C Ab (EIA) HIV 1&2 Ab/P24 Ag 4thGn 02/03/25 02/03/25 02/03/25 09:07 09:07 09:07 WBC RBC Hgb Hct MCV MCH MCHC RDW Plt Count MPV Immature Gran % (Auto) Neut % (Auto) Lymph % (Auto) [place] % (Auto) Eos % (Auto) Baso % (Auto) Lymph # (Auto) [place] # (Auto) Eos # (Auto) Baso # (Auto) Abs Immat Gran (auto) Absolute Neuts (auto) Absolute Nucleated RBC Nucleated RBC % (auto) Cancelled D-Dimer High Sensitivty Sodium 146 H Cancelled Potassium 3.3 Cancelled Chloride 106 Carbon Dioxide Anion Gap BUN Creatinine Estim Creat Clear Calc Estimated GFR POC Glucose Random Glucose Estimat Average Glucose Hemoglobin A1c % Lactic Acid Calcium Phosphorus Magnesium Total Bilirubin AST ALT Alkaline Phosphatase Troponin I High Sens NT-Pro-B Natriuret Pep Total Protein Albumin Triglycerides Cholesterol LDL Cholesterol, Calc HDL Cholesterol Vitamin B12 Folate TSH Free T4 Urine Color Urine Appearance Urine pH Ur Specific [place] Urine Protein Urine Glucose (UA) Urine Ketones Urine Blood Urine Nitrite Ur Leukocyte Esterase Salicylates Urine Opiates Screen Ur Buprenorphine Scrn Ur Oxycodone Screen Urine Methadone Screen Urine Fentanyl Screen Acetaminophen Ur Barbiturates Screen Ur Phencyclidine Scrn Ur Amphetamines Screen U Benzodiazepines Scrn Urine Cocaine Screen U Marijuana (THC) Screen Hepatitis A IgM Ab Hep Bs Antigen Hep Bs Antibody Hep B Core Total Ab Hepatitis C Ab (EIA) HIV 1&2 Ab/P24 Ag 4th 02/03/25 02/03/25 02/03/25 09:07 09:07 09:07 WBC RBC Hgb Hct MCV MCH MCHC RDW Plt Count MPV Immature Gran % (Auto) Neut % (Auto) Lymph % (Auto) [place] % (Auto) Eos % (Auto) Baso % (Auto) Lymph # (Auto) [place] # (Auto) Eos # (Auto) Baso # (Auto) Abs Immat Gran (auto) Absolute Neuts (auto) Absolute Nucleated RBC Nucleated RBC % (auto) D-Dimer High Sensitivty Sodium Potassium Chloride Cancelled Carbon Dioxide 29 Cancelled Anion Gap 14 Cancelled BUN 18 H Creatinine Estim Creat Clear Calc Estimated GFR POC Glucose Random Glucose Estimat Average Glucose Hemoglobin A1c % Lactic Acid Calcium Phosphorus Magnesium Total Bilirubin AST ALT Alkaline Phosphatase Troponin I High Sens NT-Pro-B Natriuret Pep Total Protein Albumin Triglycerides Cholesterol LDL Cholesterol, Calc HDL Cholesterol Vitamin B12 Folate TSH Free T4 Urine Color Urine Appearance Urine pH Ur Specific [place] Urine Protein Urine Glucose (UA) Urine Ketones Urine Blood Urine Nitrite Ur Leukocyte Esterase Salicylates Urine Opiates Screen Ur Buprenorphine Scrn Ur Oxycodone Screen Urine Methadone Screen Urine Fentanyl Screen Acetaminophen Ur Barbiturates Screen Ur Phencyclidine Scrn Ur Amphetamines Screen U Benzodiazepines Scrn Urine Cocaine Screen U Marijuana (THC) Screen Hepatitis A IgM Ab Hep Bs Antigen Hep Bs Antibody Hep B Core Total Ab Hepatitis C Ab (EIA) HIV 1&2 Ab/P24 Ag 4thGn 02/03/25 02/03/25 02/03/25 09:07 09:07 09:07 WBC RBC Hgb Hct MCV MCH MCHC RDW Plt Count MPV Immature Gran % (Auto) Neut % (Auto) Lymph % (Auto) [place] % (Auto) Eos % (Auto) Baso % (Auto) Lymph # (Auto) [place] # (Auto) Eos # (Auto) Baso # (Auto) Abs Immat Gran (auto) Absolute Neuts (auto) Absolute Nucleated RBC Nucleated RBC % (auto) D-Dimer High Sensitivty Sodium Potassium Chloride Carbon Dioxide Anion Gap BUN Cancelled Creatinine 0.80 Cancelled Estim Creat Clear Calc 71.1 Cancelled Estimated GFR > 60 POC Glucose Random Glucose Estimat Average Glucose Hemoglobin A1c % Lactic Acid Calcium Phosphorus Magnesium Total Bilirubin AST ALT Alkaline Phosphatase Troponin I High Sens NT-Pro-B Natriuret Pep Total Protein Albumin Triglycerides Cholesterol LDL Cholesterol, Calc HDL Cholesterol Vitamin B12 Folate TSH Free T4 Urine Color Urine Appearance Urine pH Ur Specific [place] Urine Protein Urine Glucose (UA) Urine Ketones Urine Blood Urine Nitrite Ur Leukocyte Esterase Salicylates Urine Opiates Screen Ur Buprenorphine Scrn Ur Oxycodone Screen Urine Methadone Screen Urine Fentanyl Screen Acetaminophen Ur Barbiturates Screen Ur Phencyclidine Scrn Ur Amphetamines Screen U Benzodiazepines Scrn Urine Cocaine Screen U Marijuana (THC) Screen Hepatitis A IgM Ab Hep Bs Antigen Hep Bs Antibody Hep B Core Total Ab Hepatitis C Ab (EIA) HIV 1&2 Ab/P24 Ag 4thGn 02/03/25 02/03/25 02/03/25 09:07 09:07 09:07 WBC RBC Hgb Hct MCV MCH MCHC RDW Plt Count MPV Immature Gran % (Auto) Neut % (Auto) Lymph % (Auto) [place] % (Auto) Eos % (Auto) Baso % (Auto) Lymph # (Auto) [place] # (Auto) Eos # (Auto) Baso # (Auto) Abs Immat Gran (auto) Absolute Neuts (auto) Absolute Nucleated RBC Nucleated RBC % (auto) D-Dimer High Sensitivty Sodium Potassium Chloride Carbon Dioxide Anion Gap BUN Creatinine Estim Creat Clear Calc Estimated GFR Cancelled POC Glucose Random Glucose 119 H Cancelled Estimat Average Glucose Cancelled Hemoglobin A1c % Cancelled Lactic Acid Calcium 9.2 D Cancelled Phosphorus 2.4 L Magnesium Total Bilirubin 0.8 AST ALT Alkaline Phosphatase Troponin I High Sens NT-Pro-B Natriuret Pep Total Protein Albumin Triglycerides Cholesterol LDL Cholesterol, Calc HDL Cholesterol Vitamin B12 Folate TSH Free T4 Urine Color Urine Appearance Urine pH Ur Specific [place] Urine Protein Urine Glucose (UA) Urine Ketones Urine Blood Urine Nitrite Ur Leukocyte Esterase Salicylates Urine Opiates Screen Ur Buprenorphine Scrn Ur Oxycodone Screen Urine Methadone Screen Urine Fentanyl Screen Acetaminophen Ur Barbiturates Screen Ur Phencyclidine Scrn Ur Amphetamines Screen U Benzodiazepines Scrn Urine Cocaine Screen U Marijuana (THC) Screen Hepatitis A IgM Ab Hep Bs Antigen Hep Bs Antibody Hep B Core Total Ab Hepatitis C Ab (EIA) HIV 1&2 Ab/P24 Ag 4thGn 02/03/25 02/03/25 02/03/25 09:07 09:07 09:07 WBC RBC Hgb Hct MCV MCH MCHC RDW Plt Count MPV Immature Gran % (Auto) Neut % (Auto) Lymph % (Auto) [place] % (Auto) Eos % (Auto) Baso % (Auto) Lymph # (Auto) [place] # (Auto) Eos # (Auto) Baso # (Auto) Abs Immat Gran (auto) Absolute Neuts (auto) Absolute Nucleated RBC Nucleated RBC % (auto) D-Dimer High Sensitivty Sodium Potassium Chloride Carbon Dioxide Anion Gap BUN Creatinine Estim Creat Clear Calc Estimated GFR POC Glucose Random Glucose Estimat Average Glucose Hemoglobin A1c % Lactic Acid Calcium Phosphorus Magnesium Total Bilirubin Cancelled AST 58 H Cancelled ALT 39 H Cancelled Alkaline Phosphatase 173 H Troponin I High Sens NT-Pro-B Natriuret Pep Total Protein Albumin Triglycerides Cholesterol LDL Cholesterol, Calc HDL Cholesterol Vitamin B12 Folate TSH Free T4 Urine Color Urine Appearance Urine pH Ur Specific [place] Urine Protein Urine Glucose (UA) Urine Ketones Urine Blood Urine Nitrite Ur Leukocyte Esterase Salicylates Urine Opiates Screen Ur Buprenorphine Scrn Ur Oxycodone Screen Urine Methadone Screen Urine Fentanyl Screen Acetaminophen Ur Barbiturates Screen Ur Phencyclidine Scrn Ur Amphetamines Screen U Benzodiazepines Scrn Urine Cocaine Screen U Marijuana (THC) Screen Hepatitis A IgM Ab Hep Bs Antigen Hep Bs Antibody Hep B Core Total Ab Hepatitis C Ab (EIA) HIV 1&2 Ab/P24 Ag 4thGn 02/03/25 02/03/25 02/03/25 09:07 09:07 09:07 WBC RBC Hgb Hct MCV MCH MCHC RDW Plt Count MPV Immature Gran % (Auto) Neut % (Auto) Lymph % (Auto) [place] % (Auto) Eos % (Auto) Baso % (Auto) Lymph # (Auto) [place] # (Auto) Eos # (Auto) Baso # (Auto) Abs Immat Gran (auto) Absolute Neuts (auto) Absolute Nucleated RBC Nucleated RBC % (auto) D-Dimer High Sensitivty Sodium Potassium Chloride Carbon Dioxide Anion Gap BUN Creatinine Estim Creat Clear Calc Estimated GFR POC Glucose Random Glucose Estimat Average Glucose Hemoglobin A1c % Lactic Acid Calcium Phosphorus Magnesium Total Bilirubin AST ALT Alkaline Phosphatase Cancelled Troponin I High Sens 39.4 H D NT-Pro-B Natriuret Pep 5827.6 H Total Protein 8.6 H Cancelled Albumin 3.8 Cancelled Triglycerides 65 Cholesterol 137 LDL Cholesterol, Calc 67 HDL Cholesterol 57 Vitamin B12 Folate TSH 0.23 L Free T4 1.11 Urine Color Urine Appearance Urine pH Ur Specific [place] Urine Protein Urine Glucose (UA) Urine Ketones Urine Blood Urine Nitrite Ur Leukocyte Esterase Salicylates Urine Opiates Screen Ur Buprenorphine Scrn Ur Oxycodone Screen Urine Methadone Screen Urine Fentanyl Screen Acetaminophen Ur Barbiturates Screen Ur Phencyclidine Scrn Ur Amphetamines Screen U Benzodiazepines Scrn Urine Cocaine Screen U Marijuana (THC) Screen Hepatitis A IgM Ab Pending Hep Bs Antigen Pending Hep Bs Antibody Pending Hep B Core Total Ab Pending Hepatitis C Ab (EIA) Pending HIV 1&2 Ab/P24 Ag 4thGn Pending 02/03/25 09:08 WBC RBC Hgb Hct MCV MCH MCHC RDW Plt Count MPV Immature Gran % (Auto) Neut % (Auto) Lymph % (Auto) [place] % (Auto) Eos % (Auto) Baso % (Auto) Lymph # (Auto) [place] # (Auto) Eos # (Auto) Baso # (Auto) Abs Immat Gran (auto) Absolute Neuts (auto) Absolute Nucleated RBC Nucleated RBC % (auto) D-Dimer High Sensitivty Sodium Cancelled Potassium Cancelled Chloride Cancelled Carbon Dioxide Cancelled Anion Gap Cancelled BUN Cancelled Creatinine Cancelled Estim Creat Clear Calc Cancelled Estimated GFR Cancelled POC Glucose Random Glucose Cancelled Estimat Average Glucose Hemoglobin A1c % Lactic Acid 1.8 Calcium Cancelled Phosphorus Magnesium Total Bilirubin Cancelled AST Cancelled ALT Cancelled Alkaline Phosphatase Cancelled Troponin I High Sens NT-Pro-B Natriuret Pep Total Protein Cancelled Albumin Cancelled Triglycerides Cholesterol LDL Cholesterol, Calc HDL Cholesterol Vitamin B12 640 Folate 6.3 TSH Free T4 Urine Color Urine Appearance Urine pH Ur Specific [place] Urine Protein Urine Glucose (UA) Urine Ketones Urine Blood Urine Nitrite Ur Leukocyte Esterase Salicylates Urine Opiates Screen Ur Buprenorphine Scrn Ur Oxycodone Screen Urine Methadone Screen Urine Fentanyl Screen Acetaminophen Ur Barbiturates Screen Ur Phencyclidine Scrn Ur Amphetamines Screen U Benzodiazepines Scrn Urine Cocaine Screen U Marijuana (THC) Screen Hepatitis A IgM Ab Hep Bs Antigen Hep Bs Antibody Hep B Core Total Ab Hepatitis C Ab (EIA) HIV 1&2 Ab/P24 Ag 4thGn Imaging Diagnostic Imaging Impressions Chest X-Ray 02/01/25 13:10 IMPRESSION: Clear lungs. Electronically signed by: Ephraim Curtis MD 02/01/2025 01:20 PM EST RP Venous Duplex 02/01/25 13:56 IMPRESSION: No evidence of deep venous thrombosis involving the bilateral lower extremities. Electronically signed by: Michael Lynch MD 02/01/2025 02:50 PM EST RP DS: Summary Hospital Course Hospital Course: Rapid response called while on M5 for unresponsiveness. Transferred to medical floor. Time Spent with Patient Time attestation: Total time managing care of this patient today ____ minutes. Discharge Plan Discharge Anticipated Discharge Date/Time: 02/03/25 10:42 Patient Disposition: Xfer Other Discharge Diagnosis: opioid use disorder, depression NOS Referrals: Ashia Antonio NP [Primary Care Provider, Internal Medicine] - 1 Week Discharge Medications: No Action No Known Home Meds Discharge Orders: Discharge Order (Routine); Ordered 02/03/25 Ordered By: Cayden Parkinson Diet: Regular diet Activity on Discharge: As tolerated Stand Alone Forms: Patient Portal Discharge page Print Language: [place] Care Plan Goals: Rapid response called while on M5 for unresponsiveness. Transferred to medical floor. Health Concerns: Rapid response called while on M5 for unresponsiveness. Transferred to medical floor. Plan of Treatment: Rapid response called while on M5 for unresponsiveness. Transferred to medical floor. Assessment: Rapid response called while on M5 for unresponsiveness. Transferred to medical floor. Discharge Date/Time: 02/03/25 09:39
[2025-02-03 12:00] VITALS: BP 137/78; PULSE 97; RESP 16; TEMP 37.2; O2SAT 98
[2025-02-04 04:31] LABS: HBS Num1 0.00 mIU/mL (0-7.99); HBc Num1 0.42 S/CO (0.00-0.79); HBsAGNum1 0.35 S/CO (0.00-0.99); HIV Num 1 0.09 S/CO (0.00-0.99); Hepatitis A Antibody IgM 0.84 Index (0-0.79); Hepatitis B Surface Antigen Negative (Negative); ~HepC Num1 10.81 S/CO (0.00-0.79); ~Hepatitis B Surface Antibody NONREACTIVE (Nonreactive); ~Hepatitis C Antibody Reactive (Nonreactive)
[2025-02-04 07:46] LABS: ~Hepatitis A Antibody IgM GRAYZONE (Nonreactive)
--- NOTE | 2025-02-12 05:33 | PC.NURSE ---
Late documentation: On February 02, 2025, at approximately 0515, this writer technical publications administered 1 mg of Lorazepam PO. Immediately after administration, the patient vomited. Medication record states this was not given, correction is that medication was administered as previously stated.
== END 2025-02-03 09:39 | disposition other institution (70) | DRG 881 ==
LOC: HO.ED 12:03 → HO.PM5 20:33
PROVIDERS: Physician Assistant; Psychiatry & Neurology Psychiatry; Student in an Organized Health Care Education/Training Program; Admitting Provider Nurse Practitioner Psychiatric/Mental Health; Emergency Provider Emergency Medicine Emergency Medical Services; PCP Nurse Practitioner; Visit Provider Nurse Practitioner Psychiatric/Mental Health
DX: F32.A Depression, unspecified (principal); F11.20 Opioid dependence, uncomplicated; F17.210 Nicotine dependence, cigarettes, uncomplicated; Z71.6 Tobacco abuse counseling; Z63.4 Disappearance and death of family member; Z79.899 Other long term (current) drug therapy
CPT/HCPCS: 36415; 71045; 71275; 80053; 80061; 80143; 80179; 80307; 81003; 82607; 82746; 82947; 83036; 83605; 83735; 83880; 84100; 84439; 84443; 84484; 85025; 85379; 86704; 86706; 86709; 86803; 87340; 87389; 93005; 93970; 99285; Q9967; S9485

== ENCOUNTER → 2025-02-01 13:01 | Outpatient (BNV) | payer MEDICARE, SELFPAY | PROVIDERS: Emergency Provider Emergency Medicine Emergency Medical Services; PCP Nurse Practitioner; Visit Provider Radiology Diagnostic Radiology | DX: J43.2 Centrilobular emphysema (principal); R59.0 Localized enlarged lymph nodes; I25.10 Atherosclerotic heart disease of native coronary artery without angina pectoris; K44.9 Diaphragmatic hernia without obstruction or gangrene; M41.34 Thoracogenic scoliosis, thoracic region; R06.02 Shortness of breath; R22.43 Localized swelling, mass and lump, lower limb, bilateral | CPT/HCPCS: 71045; 71275; 93970 ==

== ENCOUNTER → 2025-02-01 13:01 | Outpatient (BNV) | payer MEDICARE, SELFPAY | PROVIDERS: Admitting Provider Nurse Practitioner Psychiatric/Mental Health; Emergency Provider Emergency Medicine Emergency Medical Services; PCP Nurse Practitioner; Visit Provider Internal Medicine Cardiovascular Disease | DX: R00.1 Bradycardia, unspecified (principal); I44.1 Atrioventricular block, second degree | CPT/HCPCS: 93010 ==

== ENCOUNTER 2025-02-01 20:26 | Outpatient (BNV) | payer MEDICARE, SELFPAY | END 2025-02-03 08:27 | PROVIDERS: Admitting Provider Nurse Practitioner Psychiatric/Mental Health; Emergency Provider Emergency Medicine Emergency Medical Services; PCP Nurse Practitioner; Visit Provider Internal Medicine Cardiovascular Disease | DX: R00.0 Tachycardia, unspecified (principal); I51.7 Cardiomegaly | CPT/HCPCS: 93010 ==

== ENCOUNTER → 2025-02-01 20:26 | Outpatient (BNV) | payer OTHER, SELFPAY | PROVIDERS: Admitting Provider Nurse Practitioner Psychiatric/Mental Health; Emergency Provider Emergency Medicine Emergency Medical Services; PCP Nurse Practitioner; Visit Provider Psychiatry & Neurology Psychiatry | DX: F33.2 Major depressive disorder, recurrent severe without psychotic features (principal); F11.90 Opioid use, unspecified, uncomplicated | CPT/HCPCS: 99238 ==

== ENCOUNTER 2025-02-03 09:42 | Outpatient (BNV) | payer MEDICARE, SELFPAY | END 2025-02-04 07:00 | PROVIDERS: Admitting Provider Internal Medicine; Visit Provider Internal Medicine Cardiovascular Disease | DX: R79.89 Other specified abnormal findings of blood chemistry (principal) | CPT/HCPCS: 93306 ==

== ENCOUNTER 2025-02-03 09:42 | Inpatient (IN) | payer MEDICARE, SELFPAY ==
--- NOTE | ~2025-02-03 | US_ITS ---
CLINICAL HISTORY: pancytopenia, elevated LFts US abdomen complete Comparison: None Findings: Visualized pancreas reveals borderline prominent pancreatic duct measuring between 3 and 4 mm diameter. Aorta and inferior vena cava are normal caliber. The liver is borderline prominent in size and may reveal slight increased echogenicity, suggesting mild steatosis. No focal lesions.. Right lobe length is 15.4 cm. There is no intrahepatic bile duct dilatation. The common duct is mildly dilated, measuring up to 8 mm in diameter. The gallbladder reveals trace amount of sludge. No shadowing stones, wall thickening or pericholecystic fluid.. There is no sonographic Warner sign. The main portal vein is antegrade The right kidney is normal, 10.5 cm in length. The left kidney is normal, 9.8 cm in length. The spleen is normal, 9.4 cm in length. Impression: 1. Evidence of mild hepatic steatosis. 2. Minimal gallbladder sludge, with no sonographic evidence of cholecystitis. 3. Mildly prominent common bile duct measuring up to 8 mm diameter. This document has been electronically signed by: Adama Galvez MD on 02/03/2025 13:08:58
--- NOTE | 2025-02-03 08:31 | PM.IMHP ---
History of Present Illness Date of Service: 02/03/25 Chief Complaint: unresponsive 59F PMH polysubstance dependence, mood disorder presented to ED 02/01/2025 with severe depression due to loss of daughter secondary to cancer and relapse of drug use 1-2 bundles of heroin daily. Was admitted to inpatient psychiatry on 10/02/2024, subsequently started to have symptoms of nausea vomiting and diarrhea attributed to opiate withdrawal. She was started on methadone but continued to have symptoms. At about 08:00 on 02/03/2025 rapid response called for episode of unresponsiveness. Patient has been feeling lightheaded and weak all day and then laid down on her bed. Patient quickly regained consciousness, continues to feel weak and lightheaded. Workup including labs, EKG ordered and is pending. Review of Systems Review of Systems: Yes all other systems are reviewed and are negative [facility] Social History Household Members: None Housing: Homeless Do you presently have visiting nurse or other home services: No Patient Tobacco Use Status: Current everyday Tobacco user Tobacco use type: Cigarette Cigarette Packs Per Day: 1 Cigarettes Per Day: 20.0 Second Hand Smoke Exposure: No Substance Use Type: Heroin Advance Directives: No Advance Directives Information Provided: No Meds Allergies Allergy/AdvReac Type Severity Reaction Status Date / Time codeine (CODEINE) Allergy Unknown HIVES Verified 02/01/25 11:03 Penicillins Allergy Unknown RASH Verified 02/02/25 11:19 Active Medications: Current Medications Acetaminophen (Acetaminophen 325 Mg Tablet) 650 mg PO Q6H PRN PRN Reason: Pain, Mild 1-3,fever,headache Calcium Carbonate (Calcium Carbonate 750 Mg Tab.Chew) 750 mg PO Q4H PRN PRN Reason: Heartburn Enoxaparin Sodium (Enoxaparin Sodium 40 Mg/0.4 Ml Syringe) 40 mg SUBCUT Q24H CLIFF Magnesium Hydroxide (Milk Of Magnesia 30 Ml Oral.Susp) 30 ml PO DAILY PRN PRN Reason: Constipation Melatonin (Melatonin 3 Mg Tablet) 6 mg PO BEDTIME PRN PRN Reason: Insomnia Sodium Chloride (0.9 % Sodium Chloride Flush 3 Ml Syringe) 3 ml IVFLUSH QSHIFT CLIFF Home Medications ?Medication ?Instructions ?Recorded ?Confirmed ?Last Taken ?Type No Known Home Meds 02/01/25 02/01/25 Unknown History Physical Exam Vital Signs and Narrative: General: Lethargic O X 3, cachectic and ill-appearing Resp: Diminished bilateral, no accessory muscles used CVS: S1,S2,RRR GI: soft, non tender, non distended Neuro: motor grossly intact, responsive Hemosiderin appearing deposition bilateral lower extremity with minimal swelling Assessment and Plan (1) Substance abuse: Status: Acute Plan 59F PMH polysubstance dependence, mood disorder admitted after [employer]MENT [employer]PA[employer] in inpatient psych for unresponsiveness Unresponsiveness Suspect acute toxic metabolic encephalopathy and dehydration from nausea and vomiting and diarrhea from opiate withdrawal and psych meds IV fluids, monitor labs, addiction eval, check EKG Pancytopenia with transaminitis and history of drug use Check viral hepatitis panel, HIV dvt prophylaxis- lovenox full code Due to severity of presentation unresponsiveness, significant withdrawal expected require at least 2 midnights inpatient Quality Stroke Does the patient have a stroke diagnosis?: No VTE Prior VTE?: No VTE Risk Level:: Medical - moderate - high VTE Device Contraindication: Treatment Not Indicated VTE Drug Contraindication: N/A - Med Ordered
[2025-02-03 09:15] VITALS: PULSE 117
[2025-02-03] MEDS: Lactated Ringers 1,000 ML 80 ML IVCONT (10:45)
[2025-02-03] MEDS: Sodium,Potassium Phosphates POWD.PACK 2 PACKET PO (12:45)
--- NOTE | 2025-02-03 13:47 | MHC.RECOVRN ---
Met with pt for follow up. Pt had been previously seen on M5 where she had reported withdrawal symptoms after using 2-3 bundles of fentanyl IV. At that time pt was requesting methadone initiation and Dr. Orr was messaged so that methadone is ordered. Pt appeared to tolerate 40mg of methadone well yesterday. Pt now in 443, was able to open eyes and briefly engage with this RN. Pt reported that she is currently tolerating methadone without significant withdrawal discomfort at this time. During conversation pt was intermittently drowsy and drifted in and out of sleep, but was able to respond briefly when aroused. Rhianna remains at bedside for safety monitoring. This RN to continue checking in on pt for addiction/recovery eval.
[2025-02-03 16:00] VITALS: BP 157/87; PULSE 83; RESP 20; TEMP 36.8; O2SAT 97
[2025-02-03 20:00] VITALS: BP 149/89; PULSE 74; PULSE 76; RESP 20; O2SAT 96
[2025-02-03 20:39] LABS: Glucose, Whole Blood 75 mg/dL (60-115)
[2025-02-04] VITALS (8 sets, daily range): BP systolic 114–165; BP diastolic 76–95; PULSE 11–109; RESP 16–18; TEMP 36.4–37.2; O2SAT 95–97
[2025-02-04] MEDS: Lactated Ringers 1,000 ML 80 ML IVCONT ×2 (03:41→18:16)
--- NOTE | 2025-02-04 07:00 | CA_ITS ---
Transthoracic Echocardiogram Patient (Last, First, Middle): Karen Bob L Gender: Female Date of : 1965 Age: 59 Procedure Date: 02/04/2025 Procedure Type: Transthoracic Echocardiogram [place] [facility] [place]: 182.88 cm Weight: 58.51 kg BSA: 1.77 m2 Heart Rate: bpm BP: 165 / 95 mmHg Affiliate Marketing Manager: SB Referring MD: Cayden Parkinson MD Coal Getter: Kirk Nixon MD Symptoms: elevated bnp Study Quality: Adequate ECG Rhythm: Sinus Conclusions: - 1. Normal LV ejection fraction 55-60% with grade 1 diastolic dysfunction 2. Normal cardiac valvular Dopplers 3. Normal RV systolic pressure 4. No gross pericardial effusion Findings Left Ventricle Normal left ventricular size, thickness, and systolic function. The visually estimated ejection fraction is between 55-60%. Spectral Doppler is indicative of an impaired relaxation filling pattern. E/E prime ratio is <8, consistent with normal filling pressures. Evidence suggests grade I (mild) diastolic dysfunction. Right Ventricle Normal right ventricular cavity size and systolic function. Atria Both atria are normal in size. There is lipomatous hypertrophy of the interatrial septum. Interatrial shunt cannot be excluded. Aortic Valve There is mild thickening of the aortic valve. There is no aortic valve stenosis. There is no aortic valve regurgitation. Mitral Valve Normal mitral valve structure and function. There is trace mitral valve regurgitation. There is no mitral valve stenosis. Pulmonic Valve The pulmonic valve is likely normal. Tricuspid Valve Normal tricuspid valve structure. There is trace tricuspid valve regurgitation. The right ventricular systolic pressure is normal. The right ventricular systolic pressure is 27 mmHg. Normal right atrial pressure. There is no evidence of pulmonary hypertension. Great Vessels All visible segments of the aorta are normal in size. The pulmonary artery was not well visualized. Venous The inferior vena cava is normal in size and collapses greater than 50% with inspiration. Pericardium/Pleural There is no evidence of pericardial effusion. Prior Study Comparison No prior study available for comparison. Measurements 2D Linear Measurements IVSd: 0.91 0.6-0.9/0.6-1.0 cm LVIDd: 4.17 3.9-5.3/4.2-5.9 cm LVIDd Index: 2.36 2.4-3.2/2.2-3.1 cm/m2 LVIDs: 2.97 2.0-3.6 cm LVPWd: 0.78 0.7-1.1 cm Ao Root: 3.50 2.1-3.5 cm LA Diam: 2.70 2.7-3.8/3.0-4.0 cm LAIDs Index: 1.53 1.5-2.3 cm/m2 LV Mass: 133.76 67-162/88-224 g LV Mass Index: 75.57 43-95/49-115 g/m2 LVOT Diam: 2.40 3.0+(-)1.3 cm 2D Systolic Function EF 4C: 53.70 >55% EF 2C: 57.80 >55% EF BiP: 56.90 >55% Mitral Valve MV Pk E: 0.54 MV PK A: 0.60 MV Decel Time: 211.00 E/A: 0.90 E'Lateral: 11.30 E'Medial: 7.62 E/E' Med: 7.00 E/E' Lat: 4.70 PHT: 62.00 MVA PHT: 3.55 Decel Wharton: 2.54 Aortic Valve AoV Pk Keven: 1.09 AoV Mn Keven: 0.75 AoV VTI: 0.20 AoV Pk Grad: 5.00 Aov Mn Grad: 3.00 FRANCISCO Cont.VTI: 3.79 LVOT LVOT Pk Keven: 1.00 LVOT Mn Keven: 0.61 LVOT VTI: 0.17 LVOT Pk Grad: 4.00 LVOT Mn Grad: 2.00 LVOT Diam: 2.40 LVOT Area: 4.52 Diastolic Function MV Pk E: 0.54 MV Pk A: 0.60 E/A: 0.90 E'Medial: 7.62 E/E' Med: 7.00 E' Laterial: 11.30 E/E' Lat: 4.70 Right Ventricle TAPSE (mm): 19.00 TVS' Keven: 14.00 Tricuspid Valve TR Pk Keven: 2.44 TR Pk Grad: 24.00 RA Press: 3.00 RVSP: 27.00 Great Vessels Aorta Ao Root-2D: 3.50 2.0-3.7 cm Ao Arch: 2.80 Ao Desc: 2.30 Pulmonary Veins Pulm Vein S/D 1.30 Pulmonary Valve PV Pk Keven: 0.91 Peak PV Grad: 3.00 Updated in Other Vendor System with Status of Final Kirk Nixon MD electronically signed on 02/04/2025 10:39:40 AM with status of Final
[2025-02-04 07:36] LABS: Alanine Aminotransferase 32 U/L (0-31); Albumin Level 3.2 g/dL (3.5-5.0); Alkaline Phosphatase 144 U/L (39-117); Anion Gap 12 (12-20); Aspartate Amino Transferase 57 U/L (5-31); Blood Urea Nitrogen 19 mg/dL (9-16); Calcium 8.6 mg/dL (8.4-10.2); Carbon Dioxide 26 mmol/L (22-29); Chloride 107 mmol/L (96-108); Creatinine Clr Calc Pharmacy 78.7; Estimated Glomerular Filt Rate > 60; Magnesium 1.8 mg/dL (1.6-2.6); Potassium 3.3 mmol/L (3.3-5.1); Sodium 142 mmol/L (135-145); Total Protein 7.5 g/dL (6.5-8.0)
[2025-02-04] MEDS: methADONE HCl 20 MG/2 ML ORAL.CONC 30 MG PO (07:46)
[2025-02-04] MEDS: 0.9 % Sodium Chloride Flush 3 ML SYRINGE IVFLUSH ×3 (07:47→23:30)
[2025-02-04] MEDS: Flu Vacc TS2025-26(6mo up)/PF 0.5 ML SYRINGE IM (07:47)
[2025-02-04 07:48] LABS: Hematocrit 36.5 % (37.0-47.0); Hemoglobin 11.9 g/dl (12.0-16.0); Mean Corpuscular HGB Conc 32.6 g/dl (31.0-35.0); Mean Corpuscular Hemoglobin 29.8 pg (27.0-33.0); Mean Corpuscular Volume 91.3 fL (80.0-98.0); NRBC Abs Auto 0.000 X10*3/uL (0.0-0.012); NRBC Pct Auto 0.0 /100WBC (0.0-0.2); Platelet Count 199 X10*3/uL (160-400); Red Blood Count 4.00 X10*6/uL (4.20-5.50); White Blood Count 6.3 X10*3/uL (4.8-10.8)
[2025-02-04 08:11] LABS: Troponin-I High Sensitivity 24.8 ng/L (<3.5-17.0)
--- NOTE | 2025-02-04 08:18 | MHC.CM.PN ---
CM met with Patient at bedside and addressed IMM with her, providing Patient with the original and a copy has been placed on the chart. Patient lives in apartment with her 2 Grandchildren ages 10 & 14 years of age and are presently being cared for by another family member. Patient comes to [facility] from [facility] and returning there is pending Care Team Consult. CM has initiated and will follow for dc planning. Patient states that she has a PCP but she cannot recall the name. Patient's Friend/HCP/Ana María will transport if she is dc'd to home.
--- NOTE | 2025-02-04 08:30 | P.PNIM_ITS ---
Subjective Subjective Date of Service: 02/04/25 Interval History: starting to feel a little better Physical Exam 2 Exam: Exam: General: Lethargic O X 3, cachectic and ill-appearing Resp: Diminished bilateral, no accessory muscles used CVS: S1,S2,RRR GI: soft, non tender, non distended Neuro: motor grossly intact, responsive Hemosiderin appearing deposition bilateral lower extremity with minimal swelling Vital Signs: Vital Signs: Last Vital Signs Temp 98.3 F 02/04/25 07:18 Pulse 95 02/04/25 07:18 Resp 18 02/04/25 07:18 BP 165/95 H 02/04/25 07:18 Pulse Ox 96 02/04/25 07:18 O2 Del Method Room Air 02/04/25 07:18 Objective Data Active Medications Acetaminophen (Acetaminophen 325 Mg Tablet) 650 mg PO Q6H PRN PRN Reason: Pain, Mild 1-3,fever,headache Calcium Carbonate (Calcium Carbonate 750 Mg Tab.Chew) 750 mg PO Q4H PRN PRN Reason: Heartburn Enoxaparin Sodium (Enoxaparin Sodium 40 Mg/0.4 Ml Syringe) 40 mg SUBCUT Q24H [facility] Lactated Ringer's (Lr) 1,000 mls @ 80 mls/hr IVCONT .[id number] [facility] Last Admin: 02/04/25 03:41 Dose: 80 mls/hr Documented By: LINDA Lorazepam (Lorazepam 1 Mg Tablet) 1 mg PO TID PRN PRN Reason: Anxiety Last Admin: 02/04/25 03:40 Dose: 1 mg Documented By: LINDA Magnesium Hydroxide (Milk Of Magnesia 30 Ml Oral.Susp) 30 ml PO DAILY PRN PRN Reason: Constipation Melatonin (Melatonin 3 Mg Tablet) 6 mg PO BEDTIME PRN PRN Reason: Insomnia Methadone HCl (Methadone Hcl 20 Mg/2 Ml Oral.Conc) 30 mg PO DAILY@0800 [facility] Last Admin: 02/04/25 07:46 Dose: 30 mg Documented By: TABATHA Co-signed By: SAMRA Potassium Phos/Sodium Phos (Sodium,Potassium Phosphates Powd.Pack) 1 packet PO QID [facility] Sodium Chloride (0.9 % Sodium Chloride Flush 3 Ml Syringe) 3 ml IVFLUSH QSHIFT [facility] Last Admin: 02/04/25 07:47 Dose: 3 ml Documented By: TABATHA Labs 02/04/25 06:22 02/04/25 06:22 Labs: Laboratory Results - last 24 hr 02/03/25 02/04/25 20:29 06:22 MCV 91.3 MCH 29.8 MCHC 32.6 RDW 14.1 Plt Count 199 MPV 9.2 L Absolute Nucleated RBC 0.000 Nucleated RBC % (auto) 0.0 Hold Purple Top SEE NOTE Anion Gap 12 Estim Creat Clear Calc 78.7 Estimated GFR > 60 POC Glucose 75 Random Glucose 129 H Calcium 8.6 D Phosphorus 2.0 L Magnesium 1.8 Total Bilirubin 0.6 Direct Bilirubin 0.3 AST 57 H ALT 32 H Alkaline Phosphatase 144 H Troponin I High Sens 24.8 H Total Protein 7.5 Albumin 3.2 L Assessment and Plan (1) Substance abuse: Status: Acute Plan 59F PMH polysubstance dependence, mood disorder 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 for unresponsiveness Unresponsiveness Suspect acute toxic metabolic encephalopathy and dehydration from nausea and vomiting and diarrhea from opiate withdrawal and psych meds improving, continue IV fluids, monitor labs, addiction eval acute hypophosphatemia replace and monitor elevated BNP check echo no signs of fluid overload Pancytopenia - resolved transaminitis and history of drug use hiv negative hcv positive - check viral load and genotype outpatient follow up dvt prophylaxis- lovenox full code reason for continued hospitalization: echo pending, monitoring tele Quality Stroke Does the patient have a stroke diagnosis?: No VTE Prior VTE?: No VTE Risk Level:: Medical - moderate - high VTE Device Contraindication: Treatment Not Indicated VTE Drug Contraindication: N/A - Med Ordered
[2025-02-04] MEDS: Sodium,Potassium Phosphates POWD.PACK 1 PACKET PO ×4 (10:18→20:07)
[2025-02-04] MEDS: methADONE HCl 20 MG/2 ML ORAL.CONC 10 MG PO (10:18)
--- NOTE | 2025-02-04 11:19 | HO.ADDICT_ITS ---
History of Present Illness Date of Service: 02/04/2025 Chief Complaint: Unresponsiveness Reason for Consult: opioid withdrawal Sources of Information: patient interviewed and chart reviewed HPI Narrative: Patient is a 59 year old female with history of OUD, MDD, who was transferred to the medical floor from due to AMS, severe lethargy and opioid withdrawal Chart reviewed and patient interviewed Patient seen in room 443. She is awake, alert, eating breakfast while engaged in interview. Withdrawal sx much improved-today received methadone 30mg --would like to continue titrating dose Still experiencing body aches, anxiety Substance Use history reviewed: -reports that she started using opioid in 1998. Denies any history of overdose -history of treatment, including inpatient detox, and [facility]--both suboxone and methadone (methadone only as a detox) -denied any other substance use, including alcohol -reports she was in recovery/abstaining from all substance use since early/mid She states that once her daughter was diagnosed with cancer and her illness began to take it's toll she began to use in secret She was using up to 4 bundles daily IV UDS reviewed +cocaine and fentanyl Past Psychiatric History: Denied. No current providers. Medical Evaluation Reviewed: Yes Review of Systems Constitutional: Reports as per HPI and Reports malaise Musculoskeletal: Reports myalgias Psychiatric: Reports anxiety Diagnostics Vital Signs (24Hr): Vital Signs - 24 hr 02/03/25 16:00 02/03/25 20:00 02/04/25 00:00 Temperature 98.2 F 98.6 F Pulse Rate 83 76 102 H Respiratory Rate 20 20 16 Blood Pressure 157/87 H 149/89 H 128/79 Pulse Oximetry 97 96 95 Oxygen Delivery Method Room Air Room Air Room Air 02/04/25 04:00 02/04/25 07:18 02/04/25 11:08 Temperature 98.0 F 98.3 F 98.9 F Pulse Rate 81 95 104 H Respiratory Rate 18 18 18 Blood Pressure 155/85 H 165/95 H 138/85 Pulse Oximetry 96 96 96 Oxygen Delivery Method Room Air Room Air Room Air Labs 02/04/25 06:22 02/04/25 06:22 Labs: Laboratory Results - last 48 hr 02/03/25 02/04/25 20:29 06:22 WBC 6.3 RBC 4.00 L Hgb 11.9 L Hct 36.5 L MCV 91.3 MCH 29.8 MCHC 32.6 RDW 14.1 Plt Count 199 MPV 9.2 L Absolute Nucleated RBC 0.000 Nucleated RBC % (auto) 0.0 Hold Purple Top SEE NOTE Sodium 142 Potassium 3.3 Chloride 107 Carbon Dioxide 26 Anion Gap 12 BUN 19 H Creatinine 0.73 Estim Creat Clear Calc 78.7 Estimated GFR > 60 POC Glucose 75 Random Glucose 129 H Calcium 8.6 D Phosphorus 2.0 L Magnesium 1.8 Total Bilirubin 0.6 Direct Bilirubin 0.3 AST 57 H ALT 32 H Alkaline Phosphatase 144 H Troponin I High Sens 24.8 H Total Protein 7.5 Albumin 3.2 L Mental Status Exam Mental Status Exam Level of Consciousness: Awake, Appropriate and Alert Patient Behavior: Appropriate and Talkative Mood Description: Anxious Affect Description: Appropriate Speech Pattern: Clear Thought Process: Intact Thought Content: positive for Intact Judgement: Good Medications Medications Current Medications Acetaminophen (Acetaminophen 325 Mg Tablet) 650 mg PO Q6H PRN PRN Reason: Pain, Mild 1-3,fever,headache Calcium Carbonate (Calcium Carbonate 750 Mg Tab.Chew) 750 mg PO Q4H PRN PRN Reason: Heartburn Enoxaparin Sodium (Enoxaparin Sodium 40 Mg/0.4 Ml Syringe) 40 mg SUBCUT Q24H [facility] Last Admin: 02/04/25 10:18 Dose: 40 mg Lactated Ringer's (Lr) 1,000 mls @ 80 mls/hr IVCONT .[id number] [facility] Last Admin: 02/04/25 03:41 Dose: 80 mls/hr Lorazepam (Lorazepam 1 Mg Tablet) 1 mg PO TID PRN PRN Reason: Anxiety Last Admin: 02/04/25 03:40 Dose: 1 mg Magnesium Hydroxide (Milk Of Magnesia 30 Ml Oral.Susp) 30 ml PO DAILY PRN PRN Reason: Constipation Melatonin (Melatonin 3 Mg Tablet) 6 mg PO BEDTIME PRN PRN Reason: Insomnia Methadone HCl (Methadone Hcl 20 Mg/2 Ml Oral.Conc) 30 mg PO DAILY@0800 [facility] Last Admin: 02/04/25 07:46 Dose: 30 mg Potassium Phos/Sodium Phos (Sodium,Potassium Phosphates Powd.Pack) 1 packet PO QID [facility] Last Admin: 02/04/25 10:18 Dose: 1 packet Sodium Chloride (0.9 % Sodium Chloride Flush 3 Ml Syringe) 3 ml IVFLUSH QSHIFT [facility] Last Admin: 02/04/25 07:47 Dose: 3 ml Allergies Allergies Allergy/AdvReac Type Severity Reaction Status Date / Time codeine (CODEINE) Allergy Unknown HIVES Verified 02/01/25 11:03 Penicillins Allergy Unknown RASH Verified 02/02/25 11:19 Assessment & Plan Assessment & Plan (1) Opioid use disorder: Status: Acute Code(s): F11.90 - Opioid use, unspecified, uncomplicated Assessment and Plan: * acute withdrawal mostly resolved. * additional 10mg methadone administered today (total 40mg ) will add 10mg PRN dose should patient need it later today * methadone 50mg in AM * continue PRN zofran as needed * will continue to follow and adjust methadone dose as approriate Total time managing care of this patient today _40___ minutes. PMFSH Social History Social History Household Members: Children Housing: House Do you presently have visiting nurse or other home services: No Comment: 1:1 sitter Patient Tobacco Use Status: Current everyday Tobacco user Tobacco use type: Cigarette Cigarette Packs Per Day: 1 Cigarettes Per Day: 20.0 Second Hand Smoke Exposure: No Substance Use Type: Heroin Currently Displaying Signs/Symptoms of Drug Intoxication Withdrawal: No Have you been hit, kicked, punched, or otherwise hurt by someone within the past year? If so, by whom?: No Do you feel safe in your current relationship?: No Current Relationship Is there a partner from a previous relationship who is making you feel unsafe now?: No Are you made to feel afraid or neglected: No Advance Directives: No Advance Directives Information Provided: No Do you have a plan to hurt others: No Plan Recently lost weight without trying: Yes How much weight loss: 34pounds or more Eating poorly because of decreased appetite: Yes Nutrition screen score: 7 Patient : No : No Poor oral hygiene: No service: No
--- NOTE | 2025-02-04 18:25 | PC.NURSE ---
Ambulated this evening to the bathroom with the walker 1 assist , HR increased to 150 with ambulation and back down to 110's with rest . no sob no cp
[2025-02-05] VITALS: BP 155/94; PULSE 86; RESP 18; TEMP 36.8; O2SAT 96
[2025-02-05 02:12] VITALS: PULSE 78
[2025-02-05 03:32] VITALS: BP 158/93; PULSE 83; RESP 18; TEMP 36.1; O2SAT 95
[2025-02-05 06:40] LABS: Hematocrit 41.0 % (37.0-47.0); Hemoglobin 13.4 g/dl (12.0-16.0); Mean Corpuscular HGB Conc 32.7 g/dl (31.0-35.0); Mean Corpuscular Hemoglobin 29.8 pg (27.0-33.0); Mean Corpuscular Volume 91.1 fL (80.0-98.0); NRBC Abs Auto 0.000 X10*3/uL (0.0-0.012); NRBC Pct Auto 0.0 /100WBC (0.0-0.2); Platelet Count 192 X10*3/uL (160-400); Red Blood Count 4.50 X10*6/uL (4.20-5.50); White Blood Count 4.7 X10*3/uL (4.8-10.8)
[2025-02-05 07:07] VITALS: BP 141/95; PULSE 96; RESP 16; TEMP 37.1; O2SAT 96
[2025-02-05 07:18] LABS: Anion Gap 12 (12-20); Blood Urea Nitrogen 19 mg/dL (9-16); Calcium 8.4 mg/dL (8.4-10.2); Carbon Dioxide 25 mmol/L (22-29); Chloride 105 mmol/L (96-108); Creatinine Clr Calc Pharmacy 87.1; Estimated Glomerular Filt Rate > 60; Magnesium 1.5 mg/dL (1.6-2.6); Potassium 3.9 mmol/L (3.3-5.1); Sodium 138 mmol/L (135-145)
[2025-02-05] MEDS: methADONE HCl 20 MG/2 ML ORAL.CONC 50 MG PO (07:45)
[2025-02-05] MEDS: Sodium,Potassium Phosphates POWD.PACK 1 PACKET PO ×2 (07:46→14:23)
[2025-02-05] MEDS: 0.9 % Sodium Chloride Flush 3 ML SYRINGE IVFLUSH ×2 (07:47→14:24)
[2025-02-05] MEDS: Magnesium Sulfate/H2O 2 GM/50 ML PIGGYBACK IV (07:47)
--- NOTE | 2025-02-05 09:37 | HO.PM.IMPN ---
Subjective Subjective Date of Service: 02/05/25 Interval History: feeling better Physical Exam Exam: Exam: General: AO X 3, no acute distress Resp: CTA bilateral, no accessory muscles used CVS: S1,S2,RRR GI: soft, non tender, non distended Neuro: motor grossly intact, alert Hemosiderin appearing deposition bilateral lower extremity with minimal swelling Vital Signs: Vital Signs: Last Vital Signs Temp 98.7 F 02/05/25 07:07 Pulse 96 02/05/25 07:07 Resp 16 02/05/25 07:07 BP 141/95 H 02/05/25 07:07 Pulse Ox 96 02/05/25 07:07 O2 Del Method Room Air 02/05/25 07:07 Objective Data Active Medications Acetaminophen (Acetaminophen 325 Mg Tablet) 650 mg PO Q6H PRN PRN Reason: Pain, Mild 1-3,fever,headache Calcium Carbonate (Calcium Carbonate 750 Mg Tab.Chew) 750 mg PO Q4H PRN PRN Reason: Heartburn Enoxaparin Sodium (Enoxaparin Sodium 40 Mg/0.4 Ml Syringe) 40 mg SUBCUT Q24H [facility] Last Admin: 02/04/25 10:18 Dose: 40 mg Documented By: TABATHA Lorazepam (Lorazepam 1 Mg Tablet) 1 mg PO TID PRN PRN Reason: Anxiety Last Admin: 02/05/25 02:27 Dose: 1 mg Documented By: LINDA Comments: per Dr. Darden, can give dose now/early. Magnesium Hydroxide (Milk Of Magnesia 30 Ml Oral.Susp) 30 ml PO DAILY PRN PRN Reason: Constipation Melatonin (Melatonin 3 Mg Tablet) 6 mg PO BEDTIME PRN PRN Reason: Insomnia Methadone HCl (Methadone Hcl 20 Mg/2 Ml Oral.Conc) 50 mg PO DAILY@0800 [facility] Last Admin: 02/05/25 07:45 Dose: 50 mg Documented By: TABATHA Co-signed By: GYPSY Methadone HCl (Methadone Hcl 20 Mg/2 Ml Oral.Conc) 10 mg PO DAILY PRN PRN Reason: Opiate Withdrawal Potassium Phos/Sodium Phos (Sodium,Potassium Phosphates Powd.Pack) 1 packet PO QID [facility] Last Admin: 02/05/25 07:46 Dose: 1 packet Documented By: TABATHA Sodium Chloride (0.9 % Sodium Chloride Flush 3 Ml Syringe) 3 ml IVFLUSH QSHIFT [facility] Last Admin: 02/05/25 07:47 Dose: 3 ml Documented By: TABATHA Labs 02/05/25 06:14 02/05/25 06:14 Labs: Laboratory Results - last 24 hr 02/05/25 06:14 MCV 91.1 MCH 29.8 MCHC 32.7 RDW 13.7 Plt Count 192 MPV 8.8 L Absolute Nucleated RBC 0.000 Nucleated RBC % (auto) 0.0 Anion Gap 12 Estim Creat Clear Calc 87.1 Estimated GFR > 60 Random Glucose 76 Calcium 8.4 Phosphorus 3.0 Magnesium 1.5 L Assessment and Plan (1) Substance abuse: Status: Acute Plan 59F PMH polysubstance dependence, mood disorder 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 Unresponsiveness Suspect acute toxic metabolic encephalopathy and dehydration from nausea and vomiting and diarrhea from opiate withdrawal and psych meds resolved acute symptomatic hypophosphatemia and hypomagnesemia replaced moderate protein calorie malnutrition encourage po intake elevated BNP echo unremarkable no signs of fluid overload due to malnutrition Pancytopenia - resolved transaminitis and history of drug use hiv negative hcv positive - check viral load and genotype outpatient follow up dvt prophylaxis- lovenox full code reason for continued hospitalization: medical cleared - care team eval Quality Stroke Does the patient have a stroke diagnosis?: No VTE Prior VTE?: No VTE Risk Level:: Medical - moderate - high VTE Device Contraindication: Treatment Not Indicated VTE Drug Contraindication: N/A - Med Ordered
--- NOTE | 2025-02-05 09:47 | P.DS_ITS ---
DS: Providers Provider Date of Service: 02/05/25 Date of admission: 02/03/25 09:42 Date of discharge: 02/05/25 Primary care physician: Unknown Physician Consults: 02/03/25 08:29 Addiction Medicine Provider Routine Consulting Provider: Addiction Covering Reason for consultation: opiate with withdrawal 02/05/25 09:36 Inpt CARE Team Crisis Consult Routine Comment: Reason for consultation: medically cleared DS: Diagnosis Discharge Diagnosis (1) Substance abuse: Status: Acute DS: Summary Hospital Course Hospital Course: from initial hpi: 59F PMH polysubstance dependence, mood disorder presented to ED 02/01/2025 with severe depression due to loss of daughter secondary to cancer and relapse of drug use 1-2 bundles of heroin daily. Was admitted to inpatient psychiatry on 10/02/2024, subsequently started to have symptoms of nausea vomiting and diarrhea attributed to opiate withdrawal. She was started on methadone but continued to have symptoms. At about 08:00 on 02/03/2025 rapid response called for episode of unresponsiveness. Patient has been feeling lightheaded and weak all day and then laid down on her bed. Patient quickly regained consciousness, continues to feel weak and lightheaded. Workup including labs, EKG ordered and is pending. hospital course: Patient was admitted for episode of unresponsiveness likely due to acute toxic metabolic encephalopathy and dehydration from nausea and vomiting diarrhea due to opiate dependence with withdrawal and addition of psychiatric meds as well as moderate protein calorie malnutrition with acute symptomatic hypophosphatemia and hypomagnesemia. She was treated with methadone, IV fluids, electrolyte replacement. Symptoms resolved. Patient noted to have elevated BNP, echo which showed normal EF and grade 1 diastolic dysfunction, likely elevated BNP is secondary to malnutrition not fluid overload. Patient noted to be hypertensive and she will be started on losartan. On presentation patient had pancytopenia but this resolved. She was also noted to have transaminitis given history of IV drug use was screened for HIV and hepatitis-C, HIV was negative but patient did test positive for HCV, viral load and genotype are pending and patient should follow up outpatient for treatment. Patient is now medically stable was seen by care team who recommended inpatient psychiatric admission to which patient will be discharged. Time Attestation Discharge Coordination Time (in mins): 32 Quality: Safe Use of Opioids Does Pt have an Active Cancer Diagnosis on the Problem List?: No Quality: Stroke Does the patient have a stroke diagnosis?: No Physical Exam Exam: Exam: General: AO X 3, no acute distress Resp: CTA bilateral, no accessory muscles used CVS: S1,S2,RRR GI: soft, non tender, non distended Neuro: motor grossly intact, alert Hemosiderin appearing deposition bilateral lower extremity with minimal swelling Vital Signs: Vital Signs: Last Vital Signs Temp 98.7 F 02/05/25 07:07 Pulse 96 02/05/25 07:07 Resp 16 02/05/25 07:07 BP 141/95 H 02/05/25 07:07 Pulse Ox 96 02/05/25 07:07 O2 Del Method Room Air 02/05/25 07:07 DS: Data Data Completed and Pending Labs on day of discharge: Laboratory Results - last 24 hr 02/05/25 06:14 WBC 4.7 L RBC 4.50 Hgb 13.4 Hct 41.0 MCV 91.1 MCH 29.8 MCHC 32.7 RDW 13.7 Plt Count 192 MPV 8.8 L Absolute Nucleated RBC 0.000 Nucleated RBC % (auto) 0.0 Sodium 138 Potassium 3.9 Chloride 105 Carbon Dioxide 25 Anion Gap 12 BUN 19 H Creatinine 0.66 Estim Creat Clear Calc 87.1 Estimated GFR > 60 Random Glucose 76 Calcium 8.4 Phosphorus 3.0 Magnesium 1.5 L Discharge Plan Discharge Anticipated Discharge Date/Time: 02/05/25 09:40 Patient Disposition: Xfer Other Discharge Diagnosis: encephalopathy Referrals: Physician,Unknown J [Primary Care Provider, Medical] - 1 Week Discharge Medications: New methadone [Methadose] 10 mg/mL Concentrate 50 mg PO DAILY@0800 Qty: 0 0RF Rx Instructions: Partial Fill upon patient request. methadone [Methadose] 10 mg/mL Concentrate 10 mg PO DAILY PRN (Reason: Opiate Withdrawal) Qty: 0 0RF Rx Instructions: Partial Fill upon patient request. lorazepam 1 mg Tablet 1 mg PO TID PRN (Reason: Anxiety) Qty: 0 0RF potassium, sodium phosphates [Phos-NaK] 280-160-250 mg Powder In Packet 1 packet PO DAILY Qty: 0 0RF magnesium oxide 400 mg magnesium capsule 400 mg PO DAILY Qty: 60 0RF losartan 25 mg Tablet 25 mg PO DAILY Qty: 0 0RF Protocol: Hold for SBP< HOLD for SBP < : 90 Diet: Advance to usual diet Activity on Discharge: As tolerated Stand Alone Forms: Patient Portal Discharge page Print Language: Moroccan Care Plan Goals: Recovery Health Concerns: Hepatitis-C, malnutrition, opiate dependence Plan of Treatment: Continue opiate replacement therapy, encourage p.o. intake, nutritional supplement, outpatient follow up for hepatitis-C treatment Assessment: See above
--- NOTE | 2025-02-05 10:32 | MHC.CARE ---
Pt meets the criteria for IPLOC at this time. Section 12a in chart. Hospitalist in agreement with disposition.
--- NOTE | 2025-02-05 10:40 | MHC.CM.PN ---
Per ROUNDS discussion, Patient is medically cleared for dc and per Care Team, Patient meets the criteria for IPLOC.
[2025-02-05] MEDS: Lactated Ringers 1,000 ML 80 ML IVCONT (10:52)
--- NOTE | 2025-02-05 14:16 | P.PNADD_ITS ---
Subjective Subjective Date of Service: 02/05/25 Reason For Visit: Unresponsiveness Interim History: Patient seen in follow up for OUD and acute withdrawal Bright affect, reports she is feeling better --her grandchildren came to visit today Methadone 50mg today --did not require or request PRN methadone dose overnight Reports withdrawal sx much improved--essentially all gone Nervous about cravings and how she will manage those Review of Systems Acute medical concerns: Yes Review of Systems Constitutional: Reports as per HPI and Reports no additional constitutional complaints Mental Status Exam Mental Status Exam Patient Appearance: Appropriate Level of Consciousness: Awake, Appropriate and Alert Patient Behavior: Appropriate, Talkative and Cooperative Mood Description: Anxious Affect Description: Anxious Speech Pattern: Clear Thought Process: Intact and Rumination Thought Content: positive for Intact and positive for Circumstantial Judgement: Good Diagnostics Vital Signs (24Hr): Vital Signs - 24 hr 02/04/25 15:18 02/04/25 19:21 02/05/25 00:00 Temperature 98.4 F 97.6 F 98.2 F Pulse Rate 109 H 92 86 Respiratory Rate 18 16 18 Blood Pressure 114/81 134/76 155/94 H Pulse Oximetry 96 97 96 Oxygen Delivery Method Room Air Room Air Room Air 02/05/25 03:32 02/05/25 07:07 Temperature 96.9 F 98.7 F Pulse Rate 83 96 Respiratory Rate 18 16 Blood Pressure 158/93 H 141/95 H Pulse Oximetry 95 96 Oxygen Delivery Method Room Air Room Air Labs 02/05/25 06:14 02/05/25 06:14 Labs: Laboratory Results - last 48 hr 02/03/25 02/04/25 02/05/25 20:29 06:22 06:14 WBC 6.3 4.7 L RBC 4.00 L 4.50 Hgb 11.9 L 13.4 Hct 36.5 L 41.0 MCV 91.3 91.1 MCH 29.8 29.8 MCHC 32.6 32.7 RDW 14.1 13.7 Plt Count 199 192 MPV 9.2 L 8.8 L Absolute Nucleated RBC 0.000 0.000 Nucleated RBC % (auto) 0.0 0.0 Hold Purple Top SEE NOTE Sodium 142 138 Potassium 3.3 3.9 Chloride 107 105 Carbon Dioxide 26 25 Anion Gap 12 12 BUN 19 H 19 H Creatinine 0.73 0.66 Estim Creat Clear Calc 78.7 87.1 Estimated GFR > 60 > 60 POC Glucose 75 Random Glucose 129 H 76 Calcium 8.6 D 8.4 Phosphorus 2.0 L 3.0 Magnesium 1.8 1.5 L Total Bilirubin 0.6 Direct Bilirubin 0.3 AST 57 H ALT 32 H Alkaline Phosphatase 144 H Troponin I High Sens 24.8 H Total Protein 7.5 Albumin 3.2 L Medications Medications Current Medications Acetaminophen (Acetaminophen 325 Mg Tablet) 650 mg PO Q6H PRN PRN Reason: Pain, Mild 1-3,fever,headache Calcium Carbonate (Calcium Carbonate 750 Mg Tab.Chew) 750 mg PO Q4H PRN PRN Reason: Heartburn Enoxaparin Sodium (Enoxaparin Sodium 40 Mg/0.4 Ml Syringe) 40 mg SUBCUT Q24H COUNT INCLUDES THE [facility] Last Admin: 02/05/25 10:50 Dose: 40 mg Lorazepam (Lorazepam 1 Mg Tablet) 1 mg PO TID PRN PRN Reason: Anxiety Last Admin: 02/05/25 11:34 Dose: 1 mg Losartan Potassium (Losartan Potassium 25 Mg Tablet) 25 mg PO DAILY COUNT INCLUDES THE [facility]; Protocol Magnesium Hydroxide (Milk Of Magnesia 30 Ml Oral.Susp) 30 ml PO DAILY PRN PRN Reason: Constipation Melatonin (Melatonin 3 Mg Tablet) 6 mg PO BEDTIME PRN PRN Reason: Insomnia Methadone HCl (Methadone Hcl 20 Mg/2 Ml Oral.Conc) 50 mg PO DAILY@0800 COUNT INCLUDES THE [facility] Last Admin: 02/05/25 07:45 Dose: 50 mg Potassium Phos/Sodium Phos (Sodium,Potassium Phosphates Powd.Pack) 1 packet PO QID COUNT INCLUDES THE [facility] Last Admin: 02/05/25 07:46 Dose: 1 packet Sodium Chloride (0.9 % Sodium Chloride Flush 3 Ml Syringe) 3 ml IVFLUSH QSHIFT COUNT INCLUDES THE [facility] Last Admin: 02/05/25 07:47 Dose: 3 ml Allergies Allergies Allergy/AdvReac Type Severity Reaction Status Date / Time codeine (CODEINE) Allergy Unknown HIVES Verified 02/01/25 11:03 Penicillins Allergy Unknown RASH Verified 02/02/25 11:19 Assessment & Plan Assessment & Plan (1) Opioid use disorder: Status: Acute Code(s): F11.90 - Opioid use, unspecified, uncomplicated Assessment and Plan: * methadone 60mg in AM (02/06) hold at this dose 3 days before additional increase * likely transferring back to once medically cleared * will need referral to OTP at discharge * local [place] truck driver to follow up and provide additional recovery resources as appropriate Total time managing care of this patient today _25___ minutes.
[2025-02-05 15:00] VITALS: BP 138/93; PULSE 100; RESP 16; TEMP 36.7; O2SAT 96
--- NOTE | 2025-02-05 18:40 | PC.NURSE ---
report called to M3 RN
[2025-02-05 19:09] VITALS: BP 135/86; PULSE 92; RESP 16; TEMP 36.5; O2SAT 97
[2025-02-06 20:43] LABS: HCV RNA PCR Qn 5.89 Log IU/mL (NOT DETECTED); HCV RNA PCR Qn 782000 IU/mL (NOT DETECTED)
== END 2025-02-05 21:16 | disposition other institution (70) | DRG 896 ==
PROVIDERS: Admitting Provider Internal Medicine; PCP Nurse Practitioner; Visit Provider Internal Medicine
DX: F11.23 Opioid dependence with withdrawal (principal); G92.8 Other toxic encephalopathy; F19.20 Other psychoactive substance dependence, uncomplicated; E44.0 Moderate protein-calorie malnutrition; Z68.1 Body mass index [BMI] 19.9 or less, adult; D61.818 Other pancytopenia; R64 Cachexia; B19.20 Unspecified viral hepatitis C without hepatic coma; F17.210 Nicotine dependence, cigarettes, uncomplicated; Z23 Encounter for immunization; Z63.4 Disappearance and death of family member; E86.0 Dehydration; E83.39 Other disorders of phosphorus metabolism; E83.42 Hypomagnesemia; Z71.6 Tobacco abuse counseling; Z79.899 Other long term (current) drug therapy
CPT/HCPCS: 36415; 76700; 80048; 80076; 82947; 83735; 84100; 84484; 85027; 90656; 93306; J1650; J3475; J7120; Q9957; S9485

== ENCOUNTER 2025-02-03 09:42 | Outpatient (BNV) | payer MEDICARE, SELFPAY | END 2025-02-03 11:28 | PROVIDERS: Admitting Provider Internal Medicine; Visit Provider Radiology Diagnostic Radiology | DX: D61.818 Other pancytopenia (principal); R94.5 Abnormal results of liver function studies; K83.8 Other specified diseases of biliary tract | CPT/HCPCS: 76700 ==

== ENCOUNTER → 2025-02-03 09:42 | Outpatient (BNV) | payer MEDICARE, SELFPAY | PROVIDERS: Admitting Provider Internal Medicine; Visit Provider Nurse Practitioner Psychiatric/Mental Health | DX: F11.90 Opioid use, unspecified, uncomplicated (principal) | CPT/HCPCS: 99222; 99231 ==

== ENCOUNTER → 2025-02-03 | Outpatient (BNV) | payer MEDICARE, SELFPAY | PROVIDERS: Admitting Provider Internal Medicine; Visit Provider Internal Medicine | DX: F19.139 Other psychoactive substance abuse with withdrawal, unspecified (principal) | CPT/HCPCS: 99232; 99239; 99499 ==

== ENCOUNTER 2025-02-05 21:23 | Inpatient (IN) | payer OTHER, SELFPAY ==
[2025-02-05 20:00] VITALS: BP 137/89; PULSE 100; RESP 17; TEMP 36.4; O2SAT 98
--- NOTE | 2025-02-05 21:34 | P.HPPS_ITS ---
HPI Date of Service: 02/05/25 Chief Complaint: Crisis Sources of Information: patient interviewed, chart reviewed and crisis/core team assessment reviewed HPI Subjective Notes: Tucker Warning and Conditional Voluntary Healthcare Proxy: No Guardianship: No Medical Problems Affecting Mental Status: No Narrative: Per psychiatric admitting note on 02/02/25: 59-year-old female past medical history significant for anxiety, depression, substance use disorder who presents to the emergency department with anxiety, depression status post losing her daughter, she tells me that her daughter recently passed secondary to cancer. Since then she has been using drugs she reports using heroin 1-2 bundles per day she last use this morning. She also reports she has been having lower extremity swelling it worsens throughout the day and it is present to bilateral lower extremities. She denies suicidal or homicidal ideation. Denies auditory and visual hallucinations. Per care team note on 02/01/25: Lost only child after 5 year cancer padilla. Now has custody of 2 grandchildren aged 14 and 10. Relapsed 6 weeks ago after being sober since 2002. No outpatient services. Per Hospital note on 02/05/25: after admitted to on 10/02/2024 night, subsequently started to have symptoms of nausea vomiting and diarrhea attributed to opiate withdrawal. She was started on methadone but continued to have symptoms. At about 08:00 on 02/03/2025 rapid response called for episode of unresponsiveness. Patient has been feeling lightheaded and weak all day and then laid down on her bed. Patient quickly regained consciousness, continues to feel weak and lightheaded. Workup including labs, EKG ordered and is pending. On 02/05/25: Patient was admitted for episode of unresponsiveness likely due to acute toxic metabolic encephalopathy and dehydration from nausea and vomiting diarrhea due to opiate dependence with withdrawal and addition of psychiatric meds as well as moderate protein calorie malnutrition with acute symptomatic hypophosphatemia and hypomagnesemia. She was treated with methadone, IV fluids, electrolyte replacement. Symptoms resolved. Patient noted to have elevated BNP, echo which showed normal EF and grade 1 diastolic dysfunction, likely elevated BNP is secondary to malnutrition not fluid overload. Patient noted to be hypertensive and she will be started on losartan. On presentation patient had pancytopenia but this resolved. She was also noted to have transaminitis given history of IV drug use was screened for HIV and hepatitis-C, HIV was negative but patient did test positive for HCV, viral load and genotype are pending and patient should follow up outpatient for treatment. Patient is now medically stable was seen by care team who recommended inpatient psychiatric admission. On M3 02/05/25: patient denies SI/SIB/HI/AVH. Denies SIB hx. Denies SI hx. Denies suicide attempts. Report anxiety and depression an 8-9/10 prior to admitted to the hospital. Report severe insomnia, poor sleep abut have been sliighly improve since admitted. Report chronic back pain which worse when ambulate. Requested walker for ambulating. Report mild nausea.Report hx of Bipolar, manic episodes, and insomnia. Patient is A+Ox4, wearing hospital attire, unkempt hair, depressed and anxious. Speech is soft, normal tone, volume, no manic behaviors. Fair eye contact. Thought process is organized and lenear. Thought content is with treatment, future focus. No SI/SIB/HI/AVH. Do not appear to be pyschotic. Do not make any delusional or paranoid statement. Judgment is poor, fair insight. Past Psychiatric History: Hx of IPLOC admission back in 2007 at [facility] for depression. No current providers. No PHP/Respite for detox admission hx. Hx of Bipolar , insomnia. Medication trials: [place], Depakote, Wellbutrin, Latuda, Seroquel, trazodone. Report feeling zombie when was on Seroquel. Medical Evaluation Reviewed: Yes patient is medically clear. [facility] Narrative: CHF in 2023 Neck fusion in 2005 at [facility] HTN Narrative: in 1991 Family History: Denies family hx of psychiatric and substance use Social History: Lives alone. Unemployed. On SSDI. No legal issues. Daughter from cancer in April 2024 and patient has custody of 14-year-old and 10-year-old grand children are currently staying with their biological father while patient is in hospital. Substance History: Report using 2-3 bundle of Heroin/FEN daily. Relapse for a couple of months after being sober since 2002 after her daughter passed. Trauma History: Lost daughter to cancer in April this year Meds/Allergies Allergies Allergies Allergy/AdvReac Type Severity Reaction Status Date / Time codeine (CODEINE) Allergy Unknown HIVES Verified 02/01/25 11:03 Penicillins Allergy Unknown RASH Verified 02/02/25 11:19 Mental Status Exam Mental Status Exam Narrative: Patient is A+Ox4, wearing hospital attire, unkempt hair, depressed and anxious. Speech is soft, normal tone, volume, no manic behaviors. Fair eye contact. Thought process is organized and lenear. Thought content is with treatment, future focus. No SI/SIB/HI/AVH. Do not appear to be pyschotic. Do not make any delusional or paranoid statement. Judgment is poor, fair insight. Assessment & Plan Assessment & Plan (1) Bipolar affective, depress, severe: Status: Acute Code(s): F31.4 - Bipolar disorder, current episode depressed, severe, without psychotic features (2) Opioid use disorder: Status: Acute Code(s): F11.90 - Opioid use, unspecified, uncomplicated (3) HCV (hepatitis C virus): Status: Acute Code(s): B19.20 - Unspecified viral hepatitis C without hepatic coma (4) Swelling of both lower extremities: Status: Acute Code(s): M79.89 - Other specified soft tissue disorders (5) Mobitz I: Status: Acute Code(s): I44.1 - Atrioventricular block, second degree Plan HPI: 59-year-old female, voluntary admission for evaluation of depression, inability to care for self, opioid use disorder in this context of significant psychosocial stressors. No outpatient providers. Eager for engagement help. Currently not in active opiate withdrawals. Was started MAT MTD by [facility] addiction team. Patient Is open to substance rehab program. Hospital course: 02/05/25: methadone [Methadose] 10 mg/mL Concentrate methadone [Methadose] 10 mg/mL Concentrate : 10 mg PO DAILY PRN (Reason: Opiate Withdrawal). lorazepam 1 mg Tablet : 1 mg PO TID PRN (Reason: Anxiety) potassium, sodium phosphates [Phos-NaK] 280-160-250 mg Powder In Packet : 1 packet PO DAILY magnesium oxide 400 mg magnesium capsule: 400 mg PO DAILY losartan 25 mg Tablel: 25 mg PO DAILY. Start Latuda 20mg daily with food at 1700. Paitent would like to restart on Latuda (trial of [place], Depakote, Seroquel) for mood/bipolar. Plan Patient on 5 minute checks for safety. Admitted to M3. CV. Work with treatment team to do collateral for CSS/CCS if possible for aftercare. Refer to patient to equipment sales specialist: patient has been seen by Addiction team. Would like and open for intermodal owner operator truck driver tx program for aftercare. Health Concerns:Hepatitis-C, malnutrition, opiate dependence Continue opiate replacement therapy, encourage p.o. intake, nutritional supplement, outpatient follow up for hepatitis-C treatment Patient educated on: diagnosis, medication risk/benefits, substance abuse and therapeutic strategies Informed Consent: understands and further education needed Reason for continued inpatient stay Substantial Risk for: med/psych decompensation Statement Statement: I have reviewed the history and physical and performed a pertinent examination on my patient. No changes have occurred unless specified. If the History and Physical was not performed prior to admission, the Hospitalist's service will be consulted for completing the admission physical. Time Spent With Patient Time: Total time managing care of this patient today ____ minutes.
[2025-02-05 21:43] VITALS: BMI 17.7
--- NOTE | 2025-02-06 03:25 | PC.ADMIT ---
59-year-old female with PMH significant for anxiety, depression, AND substance use disorder, who presents to the emergency department ON 02/01/2025 with anxiety, and depression s/p losing her daughter. she tells me that her daughter recently passed secondary to cancer. Since then she has been using drugs. she reports using heroin 1-2 bundles per day and her last use was that morning. She also reports she has been having bilateral lower extremity swelling, it worsens throughout the day. After admitted to on 02/02/2025 night, subsequently started to have symptoms of nausea, vomiting and diarrhea attributed to opiate withdrawal. She was started on methadone but continued to have symptoms. At about 08:00 on 02/03/2025, PRESS PIPE INSPECTOR was called for episode of unresponsiveness. Patient has been feeling lightheaded and weak all day and then laid down on her bed. Patient quickly regained consciousness, continues to feel weak and lightheaded. Patient was admitted to Med/Tele for episode of unresponsiveness likely due to acute toxic metabolic encephalopathy and dehydration from nausea, vomiting and diarrhea due to opiate dependence with withdrawal and addition of psychiatric meds as well as moderate protein calorie malnutrition with acute symptomatic hypophosphatemia and hypomagnesemia. She was treated with methadone, IV fluids, electrolyte replacement. Symptoms resolved. Patient noted to have elevated BNP, echo which showed normal EF and grade 1 diastolic dysfunction, likely d/t elevated BNP, secondary to malnutrition not fluid overload. Patient noted to be hypertensive and she will be started on losartan. Patient is now medically stable and transferred to ON 02/05/2025 Pt arrived to M3 unit at 20:27 with admitting diagnosis for Depression. Patient is A+Ox4, signed a CV, pt is pleasant, calm and cooperative, complaint with admission process, wearing hospital attire, unkempt hair, reports depression and anxiety. Speech is soft, normal tone and volume, no manic behaviors. Fair eye contact. Thought process is organized and linear. No SI/HI/AVH. Do not appear to be psychotic. Does not make any delusional or paranoid statements. Judgment is poor with fair insight. Pt contracted for safety, ambulates with walker, unsteady gait, placed on 5mins check. VSS unremarkable, continues to endorse anxiety and depression stating, its about a 10/10 if am thinking about my daughter . Skin check completed, pt reports 7/10 pain to bilateral LLE, they are slightly swollen, +1-2 edema, with red discoloration. pt stated its from previous cellulites infection and stated the pain always bothers me especially when am laying down or climbing up the stairs . Pt's belongings inventoried/secured.
--- NOTE | 2025-02-06 04:40 | PC.ADMIT ---
59-year-old female with PMH significant for anxiety, depression, and substance use D/O, who presents to the ER on 02/01/25 with anxiety, and depression s/p losing her daughter. She tells that her daughter recently passed secondary to cancer and since then, she's been using drugs. She reports using heroin 1-2 bundles per day and her last use was that morning. She also reports having bilateral lower extremity swelling which worsens throughout the day. After admitted to M5 on the night of 02/02/2025, pt started to have symptoms of N/V and diarrhea attributed to opiate withdrawal. She was started on methadone but continued to have symptoms. At about 08:00 on 02/03/2025, RAIL ASSEMBLER called for episode of unresponsiveness. Patient has been feeling lightheaded and weak all day and then laid down on her bed. Patient quickly regained consciousness but continued to feel weak and lightheaded.Patient was admitted to Med/Tele for episode of unresponsiveness likely due to acute toxic metabolic encephalopathy and dehydration from N/V and diarrhea secondary to opiate dependence with withdrawal and addition of psychiatric meds as well as moderate protein calorie malnutrition with acute symptomatic hypophosphatemia and hypomagnesemia. She was treated with methadone, IV fluids, and electrolyte replacement. Pt also noted to have elevated BNP and HTN, ECHO performed, and pt started on Losartan. Symptoms resolved. Pt is now medically cleared and transferred to M3 on 02/05/25 Pt arrived to M3 unit at 20:27 with admitting diagnosis for Depression.Patient is A+Ox4, signed a CV, pt is pleasant, calm and cooperative, complaint with admission process, wearing hospital attire, unkempt hair, reports depression and anxiety. Speech is soft, normal tone and volume, no manic behaviors. Fair eye contact. Thought process is organized and linear. Pt denies SI/HI/AVH, does not appear to be Psychotic and does not make any delusional or paranoid statement. Judgment is poor with fair insight.Pt contracted for safety, ambulates with walker, unsteady gait, had a fall with this hospital admission, is currently placed on 5mins check. VSS unremarkable, continues to endorse anxiety and depression stating, its about a 10/10 when am thinking about my daughter Skin check completed, pt reports 7/10 pain to bilateral LLE, they are slightly swollen, +1-2 edema, cool to touch with red discoloration. pt stated its from previous cellulitis infection and stated the pain always bothers me especially when am laying down or climbing up the stairs . Pt's belongings inventoried/secured. Med rec. completed, director of business continuity notified.
[2025-02-06 08:02] VITALS: BP 136/84; PULSE 109; RESP 15; TEMP 36.7; O2SAT 97
[2025-02-06] MEDS: Nicotine 21 MG PATCH.TD24 TRANSDERMA (08:36)
[2025-02-06 08:39] LABS: Alanine Aminotransferase 42 U/L (0-31); Albumin Level 3.3 g/dL (3.5-5.0); Alkaline Phosphatase 126 U/L (39-117); Anion Gap 12 (12-20); Aspartate Amino Transferase 66 U/L (5-31); Blood Urea Nitrogen 17 mg/dL (9-16); Calcium 8.9 mg/dL (8.4-10.2); Carbon Dioxide 22 mmol/L (22-29); Chloride 104 mmol/L (96-108); Cholesterol 150 mg/dL (<200); Creatinine Clr Calc Pharmacy 74.4; Estimated Glomerular Filt Rate > 60; HDL Cholesterol 53 mg/dL (>40); Potassium 4.6 mmol/L (3.3-5.1); Sodium 133 mmol/L (135-145); Total Protein 7.8 g/dL (6.5-8.0); Triglycerides 105 mg/dL (<150)
[2025-02-06] MEDS: Flu Vacc TS2025-26(6mo up)/PF 0.5 ML SYRINGE IM (09:01)
--- NOTE | 2025-02-06 09:20 | HO.PM.IMCN ---
History of Present Illness Data of Consult Service Date: 02/06/25 Primary Care Provider: None Physician HPI Reason for consult: Medical H&P 59-year-old female with a history of HCV, depression, opioid use disorder substance use disorder, Mobitz type 1 heart block, lower extremity venous stasis, smoker. Patient presented to the emergency room with anxiety and depression wishes attributed to losing her only daughter in April due to cancer. Since her daughter she has been using heroin. Patient reports that she has been clean since 2002 and recently relapsed after the of her daughter. Patient's initial workup revealed leukopenia and normocytic anemia, no acute abnormalities in her chemistry besides elevated AST and ALT, patient also had a markedly elevated BNP of 2018.7 and a D-dimer was elevated at 405. Her EKG demonstrated bradycardia with a rate of 40 in his second-degree AV block, ST elevation with a negative troponin. Workup felt to be unlikely ACS, her chest x-ray was unremarkable. CTA chest was negative for PE. Patient was initially admitted to where a rapid response was called due to unresponsiveness. [facility] she was treated for acute toxic metabolic encephalopathy and dehydration from N/V and diarrhea secondary to opiate dependence with withdrawal and addition of psychiatric meds as well as moderate protein calorie malnutrition with acute symptomatic hypophosphatemia and hypomagnesemia. She was treated with methadone, IV fluids, and electrolyte replacement. While inpatient patient had ECHO which showed normal EF and grade 1 diastolic dysfunction, it was felt that elevated BNP likely due to malnutrition not fluid overload. She was started on losartan for hypertension. Pancytopenia, resolved. She was also noted to have transaminitis given history of IV drug use was screened for HIV and hepatitis-C, HIV was negative but patient did test positive for HCV, viral load and genotype are still pending. On exam she reports that she has occasional leg pain and redness with cramping, takes magnesium. Noted to have some venous stasis and dependent rubor to bilateral lower legs. Denies any pain at this time, no redness or warmth noted indicative of cellulitis. She denies any other medical concerns. Review of Systems Review of Systems: Denies any shortness of breath, chest pain, palpitations, dizziness, lightheadedness, headaches, dysuria, abdominal pain or discomfort, nausea, vomiting or diarrhea. Denies chills, body aches, muscle aches, fatigue or recent weight loss. [facility] Social History Household Members: Children Housing: House Do you presently have visiting nurse or other home services: No Comment: 1:1 sitter Patient Tobacco Use Status: Current someday Tobacco user Tobacco use type: Cigarette Cigarette Packs Per Day: 1 Cigarettes Per Day: 20.0 Smoked in Last 30 Days: Yes Patient Interested in Nicotine Replacement: No Patient Given Instructions on How to Stop Smoking: No (pt) Second Hand Smoke Exposure: No Substance Use Type: Heroin Currently Displaying Signs/Symptoms of Drug Intoxication Withdrawal: No Advance Directives: No Advance Directives Information Provided: Yes Do you have thoughts of harming others: None Do you have a plan to hurt others: No Plan Recently lost weight without trying: Yes How much weight loss: 34pounds or more Nutrition Risks: No Nutritional Risk Patient : No service: No Sexual orientation: Straight/Heterosexual Meds Allergies Allergy/AdvReac Type Severity Reaction Status Date / Time codeine (CODEINE) Allergy Unknown HIVES Verified 02/01/25 11:03 Penicillins Allergy Unknown RASH Verified 02/02/25 11:19 Active Medications: Current Medications Acetaminophen (Acetaminophen 325 Mg Tablet) 650 mg PO Q6H PRN PRN Reason: Headache/Pain, Scale 1-10 Al Hydroxide/Mg Hydroxide (Magnesium Hydrox/Alum Hydrox 30 Ml Oral.Susp) 30 ml PO Q6H PRN PRN Reason: Heartburn/Nausea Hydroxyzine HCl (Hydroxyzine Hcl 25 Mg Tablet) 25 mg PO Q6H PRN PRN Reason: mild anxiety Last Admin: 02/05/25 22:50 Dose: 25 mg Magnesium Hydroxide (Milk Of Magnesia 30 Ml Oral.Susp) 30 ml PO DAILY PRN PRN Reason: Constipation Methadone HCl (Methadone Hcl 20 Mg/2 Ml Oral.Conc) 60 mg PO DAILY@0800 [facility] Nicotine (Nicotine 21 Mg Patch.Td24) 21 mg TRANSDERMA DAILY [facility] Last Admin: 02/06/25 08:36 Dose: 21 mg Nicotine Polacrilex (Nicotine Polacrilex 2 Mg Gum) 4 mg BUCCAL Q2H PRN PRN Reason: Nicotine Cravings Ondansetron HCl (Ondansetron Odt 4 Mg Tab.Rapdis) 4 mg TRANSLINGU Q6H PRN PRN Reason: Nausea and Vomiting Trazodone HCl (Trazodone Hcl 50 Mg Tablet) 50 mg PO BEDTIME MRX1 PRN PRN Reason: Insomnia Last Admin: 02/05/25 22:50 Dose: 50 mg Physical Exam Vital Signs and Narrative: Vital Signs: Last Vital Signs Temp 98.0 F 02/06/25 08:02 Pulse 109 H 02/06/25 08:02 Resp 15 02/06/25 08:02 BP 136/84 02/06/25 08:02 Pulse Ox 97 02/06/25 08:02 O2 Del Method Room Air 02/06/25 08:02 BMI result Body Mass Index 17.7 Alert and oriented X3, calm and cooperative. Answers questions. Neuro: CN II-X11 intact, no deficits, visual acuity intact EYES: PERRLA, EOM intact ENT: Hearing intact, MMM Cardiac: S1 S2 RRR, No ectopy Pulmonary: lungs clear to auscultation, No increased WOB. Abdominal: BS active in all 4 quadrants, no guarding or tenderness MSK: Strength 5/5 upper and lower extremities : Deferred Extremities: 2+ nonpitting edema to bilateral lower extremities with dependent rubor.? No calf tenderness. 5/5 strength to bilateral upper and lower extremities. No redness, no warmth. Psych: Mood stable, Quiet and cooperative. Skin: Warm and dry, Intact Results Labs 02/06/25 07:52 Labs: Laboratory Results - last 24 hr 02/06/25 07:52 Anion Gap 12 Estim Creat Clear Calc 74.4 Estimated GFR > 60 Random Glucose 113 Estimat Average Glucose 114 Hemoglobin A1c % 5.6 Calcium 8.9 Total Bilirubin 0.5 AST 66 H ALT 42 H Alkaline Phosphatase 126 H Total Protein 7.8 Albumin 3.3 L Triglycerides 105 Cholesterol 150 LDL Cholesterol, Calc 76 HDL Cholesterol 53 Assessment and Plan (1) HCV (hepatitis C virus): Status: Acute Plan 59-year-old female with past medical history listed below presented to the ED initially with suicide ideation, subsequently had an unresponsive episode, transferred to medicine, treated for acute toxic metabolic encephalopathy multifactorial, now medically stable and transferred back to inpatient psych for further care and treatment. Depression/substance use disorder/anxiety/bipolar disorder/insomnia Treatment per psychiatric team Moderate protein calorie malnutrition Encourage po intake Elevated BNP ECHO unremarkable Appears euvolemic, likely due to malnutrition Hypertension Continue losartan Transaminitis and history of drug use/HCV Trend liver functions periodically HIV negative, HCV positive - Viral load and genotype pending We will need outpatient GI follow up Thank you for allowing me to participate in the care of this patient. Will follow with you, please notify medical provider with any changes in condition or concerns.
--- NOTE | 2025-02-06 09:22 | HE.PHANOTE ---
METHADONE Pt was discharged from [facility] on #[id number]. Last dose on 02/05/25 @0745 50mg but Barbie Fritz was increasing to 60mg daily.
[2025-02-06] MEDS: methADONE HCl 20 MG/2 ML ORAL.CONC 60 MG PO (09:26)
--- NOTE | 2025-02-06 14:42 | P.PNPSI_ITS ---
Subjective Subjective Date of Service: 02/06/25 Reason For Visit: Crisis Subjective Notes: Conditional Voluntary Interim History: Active on unit. patient reports feeling depressed ; pt stated, it's been a tough year with everything. I know I need to look into bereavement groups . Patient reports she is currently not interested in attending a substance abuse program; pt stated, I feel like going to meetings daily are much more helpful than programs . denies SI/HI/VH/AH. Pt reports having moments of landon then feeling low; discussed starting on Abilify; risks/benefits reviewed, pt agreed to trial. Medication Compliance: Yes Side effects from medications: No Attending Groups: Yes Mental Status Exam Mental Status Exam Narrative: Pt is alert and oriented; behavior is cooperative and calm; dressed in casual attire; mood is described as anxious and depressed ; eye contact appropriate; Speech is normal rate, volume and not pressured; thought process is organized; Thought content is on tx; denies SI/HI/VH/AH. Diagnostics Vital Signs (24Hr): Vital Signs - 24 hr 02/06/25 20:00 02/07/25 08:00 Temperature 96.4 F L 97.9 F Pulse Rate 111 H 102 H Respiratory Rate 18 16 Blood Pressure 117/82 105/72 Pulse Oximetry 96 96 Oxygen Delivery Method Room Air Room Air BMI result Body Mass Index 17.6 Labs 02/06/25 07:52 Labs: Laboratory Results - last 48 hr 02/06/25 07:52 Sodium 133 L Potassium 4.6 Chloride 104 Carbon Dioxide 22 Anion Gap 12 BUN 17 H Creatinine 0.76 Estim Creat Clear Calc 74.4 Estimated GFR > 60 Random Glucose 113 Estimat Average Glucose 114 Hemoglobin A1c % 5.6 Calcium 8.9 Total Bilirubin 0.5 AST 66 H ALT 42 H Alkaline Phosphatase 126 H Total Protein 7.8 Albumin 3.3 L Triglycerides 105 Cholesterol 150 LDL Cholesterol, Calc 76 HDL Cholesterol 53 Medications Medications Current Medications Acetaminophen (Acetaminophen 325 Mg Tablet) 650 mg PO Q6H PRN PRN Reason: Headache/Pain, Scale 1-10 Al Hydroxide/Mg Hydroxide (Magnesium Hydrox/Alum Hydrox 30 Ml Oral.Susp) 30 ml PO Q6H PRN PRN Reason: Heartburn/Nausea Aripiprazole (Aripiprazole 5 Mg Tablet) 5 mg PO BEDTIME CLIFF Hydroxyzine HCl (Hydroxyzine Hcl 25 Mg Tablet) 25 mg PO Q6H PRN PRN Reason: mild anxiety Last Admin: 02/07/25 07:27 Dose: 25 mg Magnesium Hydroxide (Milk Of Magnesia 30 Ml Oral.Susp) 30 ml PO DAILY PRN PRN Reason: Constipation Methadone HCl (Methadone Hcl 20 Mg/2 Ml Oral.Conc) 60 mg PO DAILY@0800 [facility] Last Admin: 02/07/25 07:41 Dose: 60 mg Nicotine (Nicotine 21 Mg Patch.Td24) 21 mg TRANSDERMA DAILY [facility] Last Admin: 02/07/25 08:44 Dose: 21 mg Nicotine Polacrilex (Nicotine Polacrilex 2 Mg Gum) 4 mg BUCCAL Q2H PRN PRN Reason: Nicotine Cravings Ondansetron HCl (Ondansetron Odt 4 Mg Tab.Rapdis) 4 mg TRANSLINGU Q6H PRN PRN Reason: Nausea and Vomiting Trazodone HCl (Trazodone Hcl 50 Mg Tablet) 50 mg PO BEDTIME MRX1 PRN PRN Reason: Insomnia Last Admin: 02/06/25 22:34 Dose: 50 mg Allergies Allergies Allergy/AdvReac Type Severity Reaction Status Date / Time codeine (CODEINE) Allergy Unknown HIVES Verified 02/01/25 11:03 Penicillins Allergy Unknown RASH Verified 02/02/25 11:19 Assessment & Plan Assessment & Plan (1) Bipolar affective, depress, severe: Status: Acute Code(s): F31.4 - Bipolar disorder, current episode depressed, severe, without psychotic features (2) Opioid use disorder: Status: Acute Code(s): F11.90 - Opioid use, unspecified, uncomplicated Plan 59-year-old female, voluntary admission for evaluation of depression, inability to care for self, opioid use disorder in this context of significant psychosocial stressors. No outpatient providers. Eager for engagement help. Currently not in active opiate withdrawals. Was started MAT MTD by [facility] addiction team. Patient Is open to substance rehab program. Plan Patient on 5 minute checks for safety. Admitted to M3. CV. Work with treatment team to do collateral for CSS/CCS if possible for aftercare. Refer to patient to customs import specialist: patient has been seen by Addiction team. Would like and open for millinery copyist tx program for aftercare. Health Concerns:Hepatitis-C, malnutrition, opiate dependence Continue opiate replacement therapy, encourage p.o. intake, nutritional supplement, outpatient follow up for hepatitis-C treatment 02/05:methadone [Methadose] 10 mg/mL Concentrate methadone [Methadose] 10 mg/mL Concentrate : 10 mg PO DAILY PRN (Reason: Opiate Withdrawal). lorazepam 1 mg Tablet : 1 mg PO TID PRN (Reason: Anxiety) potassium, sodium phosphates [Phos-NaK] 280-160-250 mg Powder In Packet : 1 packet PO DAILY magnesium oxide 400 mg magnesium capsule: 400 mg PO DAILY losartan 25 mg Tablel: 25 mg PO DAILY. Start Latuda 20mg daily with food at 1700. Edut would like to restart on Latuda (trial of [place], Depakote, Seroquel) for mood/bipolar. 02/06: Active on unit. patient reports feeling depressed ; pt stated, it's been a tough year with everything. I know I need to look into bereavement groups . Patient reports she is currently not interested in attending a substance abuse program; pt stated, I feel like going to meetings daily are much more helpful than programs . denies SI/HI/VH/AH. Pt reports having moments of landon then feeling low; discussed starting on Abilify; risks/benefits reviewed, pt agreed to trial. Patient educated on: diagnosis, medication risk/benefits and therapeutic strategies Reason for continued inpatient stay Substantial Risk for: med/psych decompensation Time Spent With Patient Time: Total time managing care of this patient today _20___ minutes.
--- NOTE | 2025-02-06 18:21 | MHC.RECOVRN ---
tw met with pt to check-in and offer ongoing support. Pt reports feeling anxious, but states this is her baseline. Also reports poor sleep but otherwise feels her w/d symptoms are being managed. Pt feels methadone 60mg is adequate at this time and states she will continue dosing in the community upon discharge.
[2025-02-06 20:00] VITALS: BP 117/82; PULSE 111; RESP 18; TEMP 35.8; O2SAT 96
[2025-02-07 07:00] VITALS: BMI 17.6
[2025-02-07] MEDS: methADONE HCl 20 MG/2 ML ORAL.CONC 60 MG PO (07:41)
[2025-02-07 08:00] VITALS: BP 105/72; PULSE 102; RESP 16; TEMP 36.6; O2SAT 96
[2025-02-07] MEDS: Nicotine 21 MG PATCH.TD24 TRANSDERMA (08:44)
--- NOTE | 2025-02-07 15:14 | HO.PSYCHPN ---
Subjective Subjective Date of Service: 02/07/25 Reason For Visit: Crisis Subjective Notes: Conditional Voluntary Interim History: Active on unit. attending groups. patient continues to reports feeling anxious and depressed ; she reports waking up multiple times throughout the night. Per nursing, slept 8 hours. denies SI/HI/VH/AH. Start: Abilify 5mg PO bedtime. Increase Trazodone to 100mg PO bedtime PRN insomnia. Medication Compliance: Yes Side effects from medications: No Attending Groups: Yes Mental Status Exam Mental Status Exam Narrative: Pt is alert and oriented; behavior is cooperative and calm; dressed in casual attire; mood is described as anxious and depressed ; eye contact appropriate; Speech is normal rate, volume and not pressured; thought process is organized; Thought content is on tx; denies SI/HI/VH/AH. Diagnostics Vital Signs (24Hr): Vital Signs - 24 hr 02/06/25 20:00 02/07/25 08:00 Temperature 96.4 F L 97.9 F Pulse Rate 111 H 102 H Respiratory Rate 18 16 Blood Pressure 117/82 105/72 Pulse Oximetry 96 96 Oxygen Delivery Method Room Air Room Air BMI result Body Mass Index 17.6 Labs 02/06/25 07:52 Labs: Laboratory Results - last 48 hr 02/06/25 07:52 Sodium 133 L Potassium 4.6 Chloride 104 Carbon Dioxide 22 Anion Gap 12 BUN 17 H Creatinine 0.76 Estim Creat Clear Calc 74.4 Estimated GFR > 60 Random Glucose 113 Estimat Average Glucose 114 Hemoglobin A1c % 5.6 Calcium 8.9 Total Bilirubin 0.5 AST 66 H ALT 42 H Alkaline Phosphatase 126 H Total Protein 7.8 Albumin 3.3 L Triglycerides 105 Cholesterol 150 LDL Cholesterol, Calc 76 HDL Cholesterol 53 Medications Medications Current Medications Acetaminophen (Acetaminophen 325 Mg Tablet) 650 mg PO Q6H PRN PRN Reason: Headache/Pain, Scale 1-10 Al Hydroxide/Mg Hydroxide (Magnesium Hydrox/Alum Hydrox 30 Ml Oral.Susp) 30 ml PO Q6H PRN PRN Reason: Heartburn/Nausea Aripiprazole (Aripiprazole 5 Mg Tablet) 5 mg PO BEDTIME CLIFF Hydroxyzine HCl (Hydroxyzine Hcl 25 Mg Tablet) 25 mg PO Q6H PRN PRN Reason: mild anxiety Last Admin: 02/07/25 07:27 Dose: 25 mg Magnesium Hydroxide (Milk Of Magnesia 30 Ml Oral.Susp) 30 ml PO DAILY PRN PRN Reason: Constipation Methadone HCl (Methadone Hcl 20 Mg/2 Ml Oral.Conc) 60 mg PO DAILY@0800 [facility] Last Admin: 02/07/25 07:41 Dose: 60 mg Nicotine (Nicotine 21 Mg Patch.Td24) 21 mg TRANSDERMA DAILY [facility] Last Admin: 02/07/25 08:44 Dose: 21 mg Nicotine Polacrilex (Nicotine Polacrilex 2 Mg Gum) 4 mg BUCCAL Q2H PRN PRN Reason: Nicotine Cravings Ondansetron HCl (Ondansetron Odt 4 Mg Tab.Rapdis) 4 mg TRANSLINGU Q6H PRN PRN Reason: Nausea and Vomiting Trazodone HCl (Trazodone Hcl 50 Mg Tablet) 50 mg PO BEDTIME MRX1 PRN PRN Reason: Insomnia Last Admin: 02/06/25 22:34 Dose: 50 mg Allergies Allergies Allergy/AdvReac Type Severity Reaction Status Date / Time codeine (CODEINE) Allergy Unknown HIVES Verified 02/01/25 11:03 Penicillins Allergy Unknown RASH Verified 02/02/25 11:19 Assessment & Plan Assessment & Plan (1) Bipolar affective, depress, severe: Status: Acute Code(s): F31.4 - Bipolar disorder, current episode depressed, severe, without psychotic features (2) Opioid use disorder: Status: Acute Code(s): F11.90 - Opioid use, unspecified, uncomplicated Plan 59-year-old female, voluntary admission for evaluation of depression, inability to care for self, opioid use disorder in this context of significant psychosocial stressors. No outpatient providers. Eager for engagement help. Currently not in active opiate withdrawals. Was started MAT MTD by [facility] addiction team. Patient Is open to substance rehab program. Plan Patient on 5 minute checks for safety. Admitted to M3. CV. Work with treatment team to do collateral for CSS/CCS if possible for aftercare. Refer to patient to research and development specialist: patient has been seen by Addiction team. Would like and open for fpc tx program for aftercare. Health Concerns:Hepatitis-C, malnutrition, opiate dependence Continue opiate replacement therapy, encourage p.o. intake, nutritional supplement, outpatient follow up for hepatitis-C treatment 02/05:methadone [Methadose] 10 mg/mL Concentrate methadone [Methadose] 10 mg/mL Concentrate : 10 mg PO DAILY PRN (Reason: Opiate Withdrawal). lorazepam 1 mg Tablet : 1 mg PO TID PRN (Reason: Anxiety) potassium, sodium phosphates [Phos-NaK] 280-160-250 mg Powder In Packet : 1 packet PO DAILY magnesium oxide 400 mg magnesium capsule: 400 mg PO DAILY losartan 25 mg Tablel: 25 mg PO DAILY. Start Latuda 20mg daily with food at 1700. Paitent would like to restart on Latuda (trial of [place], Depakote, Seroquel) for mood/bipolar. 02/06: Active on unit. patient reports feeling depressed ; pt stated, it's been a tough year with everything. I know I need to look into bereavement groups . Patient reports she is currently not interested in attending a substance abuse program; pt stated, I feel like going to meetings daily are much more helpful than programs . denies SI/HI/VH/AH. Pt reports having moments of landon then feeling low; discussed starting on Abilify; risks/benefits reviewed, pt agreed to trial. 02/07: Active on unit. attending groups. patient continues to reports feeling anxious and depressed ; she reports waking up multiple times throughout the night. Per nursing, slept 8 hours. denies SI/HI/VH/AH. Start: Abilify 5mg PO bedtime. Increase Trazodone to 100mg PO bedtime PRN insomnia. Patient educated on: diagnosis, medication risk/benefits and therapeutic strategies Reason for continued inpatient stay Substantial Risk for: med/psych decompensation Time Spent With Patient Time: Total time managing care of this patient today _20___ minutes.
[2025-02-07 20:00] VITALS: BP 128/60; PULSE 97; RESP 16; TEMP 36.6; O2SAT 97
[2025-02-08] MEDS: Nicotine 21 MG PATCH.TD24 TRANSDERMA (07:58)
[2025-02-08 08:00] VITALS: BP 127/73; PULSE 86; RESP 18; TEMP 37.3; O2SAT 94
[2025-02-08] MEDS: methADONE HCl 20 MG/2 ML ORAL.CONC 60 MG PO (08:00)
--- NOTE | 2025-02-08 18:37 | P.PNPSI_ITS ---
Subjective Subjective Date of Service: 02/08/25 Reason For Visit: Crisis Subjective Notes: Conditional Voluntary Healthcare Proxy: No Guardianship: No Medical Problems Affecting Mental Status: No Interim History: I slept well for the first time last night. States for several years it has been difficult to sleep for more than 6 hours per night. Denies SI,HI,AH,VH. Participating in the milieu and in groups Reports anxiety, hydroxyzine not helpful. Reports this caused nausea, tremor, and dryness Review of medications, will increase Abilify to 10 mg to assist with sx mgt. Notified after meeting with pt that she was requesting a prn for anxiety- Quetiapine 25 mg bid prn ordered. Discussed the of her daughter on 05/17 and her grandchildren. Discussed questions about [employer]- will ask to see financial counseling. Medication Compliance: Yes Side effects from medications: Yes (as noted) Attending Groups: Yes Review of Systems Acute medical concerns: No Medical Review of Systems: unchanged Review of Systems Review of Systems Denies Mental Status Exam Mental Status Exam Patient Appearance: Appropriate Patient Orientation: Person, Place, Time and Situation Level of Consciousness: Alert Patient Behavior: Talkative and Good Eye Contact Mood Description: Anxious Affect Description: Anxious Patient Cognition Impaired: No Ability to Follow Directions: Good Speech Pattern: Spontaneous Speech Memory Description: Intact Hallucinations: None Delusions: Not Present Thought Process: Intact and Goal Oriented Thought Content: positive for Intact, positive for Goal Oriented and positive for Suicidal Ideation (denies) Depressive Symptoms: Thoughts of /Suicide (denies) Judgement: Good Diagnostics Vital Signs (24Hr): Vital Signs - 24 hr 02/07/25 20:00 02/08/25 08:00 Temperature 97.9 F 99.2 F Pulse Rate 97 86 Respiratory Rate 16 18 Blood Pressure 128/60 127/73 Pulse Oximetry 97 94 Oxygen Delivery Method Room Air Room Air BMI result Body Mass Index 17.6 Labs 02/06/25 07:52 Medications Medications Current Medications Acetaminophen (Acetaminophen 325 Mg Tablet) 650 mg PO Q6H PRN PRN Reason: Headache/Pain, Scale 1-10 Al Hydroxide/Mg Hydroxide (Magnesium Hydrox/Alum Hydrox 30 Ml Oral.Susp) 30 ml PO Q6H PRN PRN Reason: Heartburn/Nausea Aripiprazole (Aripiprazole 10 Mg Tablet) 10 mg PO BEDTIME [facility] Benzocaine (Throat Lozenge, Medicated Lozenge) 1 lozenge MUCOUS MEM Q2H PRN PRN Reason: Sore Throat Magnesium Hydroxide (Milk Of Magnesia 30 Ml Oral.Susp) 30 ml PO DAILY PRN PRN Reason: Constipation Methadone HCl (Methadone Hcl 20 Mg/2 Ml Oral.Conc) 60 mg PO DAILY@0800 [facility] Last Admin: 02/08/25 08:00 Dose: 60 mg Nicotine (Nicotine 21 Mg Patch.Td24) 21 mg TRANSDERMA DAILY [facility] Last Admin: 02/08/25 07:58 Dose: 21 mg Nicotine Polacrilex (Nicotine Polacrilex 2 Mg Gum) 4 mg BUCCAL Q2H PRN PRN Reason: Nicotine Cravings Ondansetron HCl (Ondansetron Odt 4 Mg Tab.Rapdis) 4 mg TRANSLINGU Q6H PRN PRN Reason: Nausea and Vomiting Quetiapine Fumarate (Quetiapine Fumarate 25 Mg Tablet) 25 mg PO BID PRN PRN Reason: anxiety, agitation Trazodone HCl (Trazodone Hcl 100 Mg Tablet) 100 mg PO BEDTIME PRN PRN Reason: Insomnia Last Admin: 02/07/25 22:55 Dose: 100 mg Allergies Allergies Allergy/AdvReac Type Severity Reaction Status Date / Time codeine (CODEINE) Allergy Unknown HIVES Verified 02/01/25 11:03 Penicillins Allergy Unknown RASH Verified 02/02/25 11:19 Assessment & Plan Assessment & Plan (1) Bipolar affective, depress, severe: Status: Acute Code(s): F31.4 - Bipolar disorder, current episode depressed, severe, without psychotic features (2) Opioid use disorder: Status: Acute Code(s): F11.90 - Opioid use, unspecified, uncomplicated Plan 59-year-old female, voluntary admission for evaluation of depression, inability to care for self, opioid use disorder in this context of significant psychosocial stressors. No outpatient providers. Eager for engagement help. Currently not in active opiate withdrawals. Was started MAT MTD by [facility] addiction team. Patient Is open to substance rehab program. Plan Patient on 5 minute checks for safety. Admitted to M3. CV. Work with treatment team to do collateral for CSS/CCS if possible for aftercare. Refer to patient to plant specialist: patient has been seen by Addiction team. Would like and open for [facility] tx program for aftercare. Health Concerns:Hepatitis-C, malnutrition, opiate dependence Continue opiate replacement therapy, encourage p.o. intake, nutritional supplement, outpatient follow up for hepatitis-C treatment 02/05:methadone [Methadose] 10 mg/mL Concentrate methadone [Methadose] 10 mg/mL Concentrate : 10 mg PO DAILY PRN (Reason: Opiate Withdrawal). lorazepam 1 mg Tablet : 1 mg PO TID PRN (Reason: Anxiety) potassium, sodium phosphates [Phos-NaK] 280-160-250 mg Powder In Packet : 1 packet PO DAILY magnesium oxide 400 mg magnesium capsule: 400 mg PO DAILY losartan 25 mg Tablel: 25 mg PO DAILY. Start Latuda 20mg daily with food at 1700. Edut would like to restart on Latuda (trial of [place], Depakote, Seroquel) for mood/bipolar. 02/06: Active on unit. patient reports feeling depressed ; pt stated, it's been a tough year with everything. I know I need to look into bereavement groups . Patient reports she is currently not interested in attending a substance abuse program; pt stated, I feel like going to meetings daily are much more helpful than programs . denies SI/HI/VH/AH. Pt reports having moments of landon then feeling low; discussed starting on Abilify; risks/benefits reviewed, pt agreed to trial. 02/07: Active on unit. attending groups. patient continues to reports feeling anxious and depressed ; she reports waking up multiple times throughout the night. Per nursing, slept 8 hours. denies SI/HI/VH/AH. Start: Abilify 5mg PO bedtime. Increase Trazodone to 100mg PO bedtime PRN insomnia. 02/08: I slept well for the first time last night. States for several years it has been difficult to sleep for more than 6 hours per night. Denies SI,HI,AH,VH. Participating in the milieu and in groups Reports anxiety, hydroxyzine not helpful. Reports this caused nausea, tremor, and dryness Review of medications, will increase Abilify to 10 mg to assist with sx mgt. Notified after meeting with pt that she was requesting a prn for anxiety- Quetiapine 25 mg bid prn ordered. Discussed the of her daughter on 05/17 and her grandchildren. Discussed questions about [employer]- will ask to see financial counseling. Patient educated on: medication risk/benefits and therapeutic strategies Informed Consent: understands Reason for continued inpatient stay Substantial Risk for: rapid decompensation Time Spent With Patient Time: Total time managing care of this patient today ____ minutes.
[2025-02-08 20:00] VITALS: BP 125/84; PULSE 85; RESP 16; TEMP 36.6; O2SAT 98
[2025-02-09 07:45] VITALS: BP 123/83; PULSE 100; RESP 20; TEMP 36.8; O2SAT 96
[2025-02-09] MEDS: methADONE HCl 20 MG/2 ML ORAL.CONC 60 MG PO (07:57)
[2025-02-09] MEDS: Nicotine 21 MG PATCH.TD24 TRANSDERMA (08:55)
--- NOTE | 2025-02-09 09:18 | HO.PSYCHPN ---
Subjective Subjective Date of Service: 02/09/25 Reason For Visit: Crisis Interim History: Sleep continues to be improved. She says she was only sleeping 2 hours a night before admission. Denies SI,HI,AH,VH. Participating in the milieu and in groups Visible in the milieu. Tolerating medications well but the Hydroxyzine caused her to have nausea and tremor but she says I am a nervy person anyway. Review of Systems Review of Systems Denies Mental Status Exam Mental Status Exam Patient Appearance: Appropriate Patient Orientation: Person, Place, Time and Situation Level of Consciousness: Alert Patient Behavior: Talkative and Good Eye Contact Mood Description: Anxious Affect Description: Anxious Patient Cognition Impaired: No Ability to Follow Directions: Good Speech Pattern: Spontaneous Speech Memory Description: Intact Diagnostics Vital Signs (24Hr): Vital Signs - 24 hr 02/08/25 20:00 02/09/25 07:45 Temperature 97.9 F 98.2 F Pulse Rate 85 100 Respiratory Rate 16 20 Blood Pressure 125/84 123/83 Pulse Oximetry 98 96 Oxygen Delivery Method Room Air Room Air BMI result Body Mass Index 17.6 Labs 02/06/25 07:52 Medications Medications Current Medications Acetaminophen (Acetaminophen 325 Mg Tablet) 650 mg PO Q6H PRN PRN Reason: Headache/Pain, Scale 1-10 Al Hydroxide/Mg Hydroxide (Magnesium Hydrox/Alum Hydrox 30 Ml Oral.Susp) 30 ml PO Q6H PRN PRN Reason: Heartburn/Nausea Aripiprazole (Aripiprazole 10 Mg Tablet) 10 mg PO BEDTIME [facility] Last Admin: 02/08/25 20:27 Dose: 10 mg Benzocaine (Throat Lozenge, Medicated Lozenge) 1 lozenge MUCOUS MEM Q2H PRN PRN Reason: Sore Throat Magnesium Hydroxide (Milk Of Magnesia 30 Ml Oral.Susp) 30 ml PO DAILY PRN PRN Reason: Constipation Methadone HCl (Methadone Hcl 20 Mg/2 Ml Oral.Conc) 60 mg PO DAILY@0800 [facility] Last Admin: 02/09/25 07:57 Dose: 60 mg Nicotine (Nicotine 21 Mg Patch.Td24) 21 mg TRANSDERMA DAILY [facility] Last Admin: 02/09/25 08:55 Dose: 21 mg Nicotine Polacrilex (Nicotine Polacrilex 2 Mg Gum) 4 mg BUCCAL Q2H PRN PRN Reason: Nicotine Cravings Ondansetron HCl (Ondansetron Odt 4 Mg Tab.Rapdis) 4 mg TRANSLINGU Q6H PRN PRN Reason: Nausea and Vomiting Quetiapine Fumarate (Quetiapine Fumarate 25 Mg Tablet) 25 mg PO BID PRN PRN Reason: anxiety, agitation Last Admin: 02/08/25 18:57 Dose: 25 mg Trazodone HCl (Trazodone Hcl 100 Mg Tablet) 100 mg PO BEDTIME PRN PRN Reason: Insomnia Last Admin: 02/08/25 23:03 Dose: 100 mg Allergies Allergies Allergy/AdvReac Type Severity Reaction Status Date / Time codeine (CODEINE) Allergy Unknown HIVES Verified 02/01/25 11:03 Penicillins Allergy Unknown RASH Verified 02/02/25 11:19 Assessment & Plan Assessment & Plan (1) Bipolar affective, depress, severe: Status: Acute Code(s): F31.4 - Bipolar disorder, current episode depressed, severe, without psychotic features (2) Opioid use disorder: Status: Acute Code(s): F11.90 - Opioid use, unspecified, uncomplicated Plan 59-year-old female, voluntary admission for evaluation of depression, inability to care for self, opioid use disorder in this context of significant psychosocial stressors. No outpatient providers. Eager for engagement help. Currently not in active opiate withdrawals. Was started MAT MTD by [facility] addiction team. Patient Is open to substance rehab program. Plan Patient on 5 minute checks for safety. Admitted to M3. CV. Work with treatment team to do collateral for CSS/CCS if possible for aftercare. Refer to patient to substance addiction coordinator: patient has been seen by Addiction team. Would like and open for cbx operator tx program for aftercare. Health Concerns:Hepatitis-C, malnutrition, opiate dependence Continue opiate replacement therapy, encourage p.o. intake, nutritional supplement, outpatient follow up for hepatitis-C treatment 02/05:methadone [Methadose] 10 mg/mL Concentrate methadone [Methadose] 10 mg/mL Concentrate : 10 mg PO DAILY PRN (Reason: Opiate Withdrawal). lorazepam 1 mg Tablet : 1 mg PO TID PRN (Reason: Anxiety) potassium, sodium phosphates [Phos-NaK] 280-160-250 mg Powder In Packet : 1 packet PO DAILY magnesium oxide 400 mg magnesium capsule: 400 mg PO DAILY losartan 25 mg Tablel: 25 mg PO DAILY. Start Latuda 20mg daily with food at 1700. Paitent would like to restart on Latuda (trial of [place], Depakote, Seroquel) for mood/bipolar. 02/06: Active on unit. patient reports feeling depressed ; pt stated, it's been a tough year with everything. I know I need to look into bereavement groups . Patient reports she is currently not interested in attending a substance abuse program; pt stated, I feel like going to meetings daily are much more helpful than programs . denies SI/HI/VH/AH. Pt reports having moments of landon then feeling low; discussed starting on Abilify; risks/benefits reviewed, pt agreed to trial. 02/07: Active on unit. attending groups. patient continues to reports feeling anxious and depressed ; she reports waking up multiple times throughout the night. Per nursing, slept 8 hours. denies SI/HI/VH/AH. Start: Abilify 5mg PO bedtime. Increase Trazodone to 100mg PO bedtime PRN insomnia. 02/08: I slept well for the first time last night. States for several years it has been difficult to sleep for more than 6 hours per night. Denies SI,HI,AH,VH. Participating in the milieu and in groups Reports anxiety, hydroxyzine not helpful. Reports this caused nausea, tremor, and dryness Review of medications, will increase Abilify to 10 mg to assist with sx mgt. Notified after meeting with pt that she was requesting a prn for anxiety- Quetiapine 25 mg bid prn ordered. Discussed the of her daughter on 05/17 and her grandchildren. Discussed questions about [employer]- will ask to see financial counseling. 02/09: continue current management and treatment plan. Reason for continued inpatient stay Substantial Risk for: inability to function and rapid decompensation Time Spent With Patient Time: Total time managing care of this patient today ____ minutes.
[2025-02-09 20:00] VITALS: BP 124/75; PULSE 94; RESP 16; TEMP 36.8; O2SAT 96
[2025-02-10] MEDS: methADONE HCl 20 MG/2 ML ORAL.CONC 60 MG PO (07:52)
[2025-02-10 08:00] VITALS: BP 132/83; PULSE 86; RESP 14; TEMP 36.5; O2SAT 94
[2025-02-10] MEDS: Nicotine 21 MG PATCH.TD24 TRANSDERMA (08:54)
--- NOTE | 2025-02-10 09:38 | HO.PSYCHPN ---
Subjective Subjective Date of Service: 02/10/25 Reason For Visit: Crisis Interim History: Patientn seen and discussed with RN. She reports being on Lasix at home for her venous insufficiency. Patient reports sleep continues to be improved. Her mood is calm . Engaged and participating in the milieu and in groups. Denies SI,HI,AH,VH. Visible in the milieu. Review of Systems Review of Systems Denies Mental Status Exam Mental Status Exam Patient Appearance: Appropriate Patient Orientation: Person, Place, Time and Situation Level of Consciousness: Alert Patient Behavior: Talkative and Good Eye Contact Mood Description: Anxious Affect Description: Anxious Patient Cognition Impaired: No Ability to Follow Directions: Good Speech Pattern: Spontaneous Speech Memory Description: Intact Diagnostics Vital Signs (24Hr): Vital Signs - 24 hr 02/09/25 20:00 02/10/25 08:00 Temperature 98.2 F 97.7 F Pulse Rate 94 86 Respiratory Rate 16 14 Blood Pressure 124/75 132/83 Pulse Oximetry 96 94 Oxygen Delivery Method Room Air Room Air BMI result Body Mass Index 17.6 Labs 02/06/25 07:52 Medications Medications Current Medications Acetaminophen (Acetaminophen 325 Mg Tablet) 650 mg PO Q6H PRN PRN Reason: Headache/Pain, Scale 1-10 Last Admin: 02/10/25 09:05 Dose: 650 mg Al Hydroxide/Mg Hydroxide (Magnesium Hydrox/Alum Hydrox 30 Ml Oral.Susp) 30 ml PO Q6H PRN PRN Reason: Heartburn/Nausea Aripiprazole (Aripiprazole 10 Mg Tablet) 10 mg PO BEDTIME [facility] Last Admin: 02/09/25 20:17 Dose: 10 mg Benzocaine (Throat Lozenge, Medicated Lozenge) 1 lozenge MUCOUS MEM Q2H PRN PRN Reason: Sore Throat Magnesium Hydroxide (Milk Of Magnesia 30 Ml Oral.Susp) 30 ml PO DAILY PRN PRN Reason: Constipation Methadone HCl (Methadone Hcl 20 Mg/2 Ml Oral.Conc) 60 mg PO DAILY@0800 [facility] Last Admin: 02/10/25 07:52 Dose: 60 mg Nicotine (Nicotine 21 Mg Patch.Td24) 21 mg TRANSDERMA DAILY [facility] Last Admin: 02/10/25 08:54 Dose: 21 mg Nicotine Polacrilex (Nicotine Polacrilex 2 Mg Gum) 4 mg BUCCAL Q2H PRN PRN Reason: Nicotine Cravings Ondansetron HCl (Ondansetron Odt 4 Mg Tab.Rapdis) 4 mg TRANSLINGU Q6H PRN PRN Reason: Nausea and Vomiting Quetiapine Fumarate (Quetiapine Fumarate 25 Mg Tablet) 25 mg PO BID PRN PRN Reason: anxiety, agitation Last Admin: 02/09/25 16:56 Dose: 25 mg Trazodone HCl (Trazodone Hcl 100 Mg Tablet) 100 mg PO BEDTIME PRN PRN Reason: Insomnia Last Admin: 02/09/25 21:54 Dose: 100 mg Allergies Allergies Allergy/AdvReac Type Severity Reaction Status Date / Time codeine (CODEINE) Allergy Unknown HIVES Verified 02/01/25 11:03 Penicillins Allergy Unknown RASH Verified 02/02/25 11:19 Assessment & Plan Assessment & Plan (1) Bipolar affective, depress, severe: Status: Acute Code(s): F31.4 - Bipolar disorder, current episode depressed, severe, without psychotic features (2) Opioid use disorder: Status: Acute Code(s): F11.90 - Opioid use, unspecified, uncomplicated Plan 59-year-old female, voluntary admission for evaluation of depression, inability to care for self, opioid use disorder in this context of significant psychosocial stressors. No outpatient providers. Eager for engagement help. Currently not in active opiate withdrawals. Was started MAT MTD by [facility] addiction team. Patient Is open to substance rehab program. Plan Patient on 5 minute checks for safety. Admitted to M3. CV. Work with treatment team to do collateral for CSS/CCS if possible for aftercare. Refer to patient to consumer electronic retail specialist: patient has been seen by Addiction team. Would like and open for termite control technician tx program for aftercare. Health Concerns:Hepatitis-C, malnutrition, opiate dependence Continue opiate replacement therapy, encourage p.o. intake, nutritional supplement, outpatient follow up for hepatitis-C treatment 02/05:methadone [Methadose] 10 mg/mL Concentrate methadone [Methadose] 10 mg/mL Concentrate : 10 mg PO DAILY PRN (Reason: Opiate Withdrawal). lorazepam 1 mg Tablet : 1 mg PO TID PRN (Reason: Anxiety) potassium, sodium phosphates [Phos-NaK] 280-160-250 mg Powder In Packet : 1 packet PO DAILY magnesium oxide 400 mg magnesium capsule: 400 mg PO DAILY losartan 25 mg Tablel: 25 mg PO DAILY. Start Latuda 20mg daily with food at 1700. Michelle would like to restart on Latuda (trial of [place], Depakote, Seroquel) for mood/bipolar. 02/06: Active on unit. patient reports feeling depressed ; pt stated, it's been a tough year with everything. I know I need to look into bereavement groups . Patient reports she is currently not interested in attending a substance abuse program; pt stated, I feel like going to meetings daily are much more helpful than programs . denies SI/HI/VH/AH. Pt reports having moments of landon then feeling low; discussed starting on Abilify; risks/benefits reviewed, pt agreed to trial. 02/07: Active on unit. attending groups. patient continues to reports feeling anxious and depressed ; she reports waking up multiple times throughout the night. Per nursing, slept 8 hours. denies SI/HI/VH/AH. Start: Abilify 5mg PO bedtime. Increase Trazodone to 100mg PO bedtime PRN insomnia. 02/08: I slept well for the first time last night. States for several years it has been difficult to sleep for more than 6 hours per night. Denies SI,HI,AH,VH. Participating in the milieu and in groups Reports anxiety, hydroxyzine not helpful. Reports this caused nausea, tremor, and dryness Review of medications, will increase Abilify to 10 mg to assist with sx mgt. Notified after meeting with pt that she was requesting a prn for anxiety- Quetiapine 25 mg bid prn ordered. Discussed the of her daughter on 05/17 and her grandchildren. Discussed questions about [employer]- will ask to see financial counseling. 02/09: continue current management and treatment plan. 02/10: Restart Lasix 20 mg daily. Otherwise continue current management and treatment plan. Reason for continued inpatient stay Substantial Risk for: inability to function and rapid decompensation Time Spent With Patient Time: Total time managing care of this patient today ____ minutes.
[2025-02-10 20:00] VITALS: BP 128/87; PULSE 92; RESP 16; TEMP 36.3; O2SAT 96
[2025-02-10] MEDS: Milk of Magnesia 30 ML ORAL.SUSP PO (21:07)
[2025-02-11 07:47] VITALS: BP 126/81; PULSE 81; RESP 16; TEMP 36.7; O2SAT 94
[2025-02-11] MEDS: methADONE HCl 20 MG/2 ML ORAL.CONC 60 MG PO (07:51)
[2025-02-11] MEDS: Nicotine 21 MG PATCH.TD24 TRANSDERMA (08:32)
[2025-02-11] MEDS: Milk of Magnesia 30 ML ORAL.SUSP PO (10:40)
--- NOTE | 2025-02-11 15:03 | HO.PSYCHPN ---
Subjective Subjective Date of Service: 02/11/25 Reason For Visit: Crisis Subjective Notes: Conditional Voluntary Interim History: Active on unit. social with peers. attending groups. Patient reports she continues to feel depressed but has improved since admission. denies SI/HI/VH/AH. Patient reports she plans on following up with his outpatient providers and focusing on her sobriety. Medication Compliance: Yes Side effects from medications: No Attending Groups: Yes Mental Status Exam Mental Status Exam Narrative: Pt is alert and oriented; behavior is cooperative and calm; dressed in casual attire; mood is described as good ; eye contact appropriate; Speech is normal rate, volume and not pressured; thought process is organized; Thought content is on tx/discharge; denies SI/HI/VH/AH. Diagnostics Vital Signs (24Hr): Vital Signs - 24 hr 02/10/25 20:00 02/11/25 07:47 Temperature 97.3 F 98.1 F Pulse Rate 92 81 Respiratory Rate 16 16 Blood Pressure 128/87 126/81 Pulse Oximetry 96 94 Oxygen Delivery Method Room Air Room Air BMI result Body Mass Index 17.6 Labs 02/06/25 07:52 Medications Medications Current Medications Acetaminophen (Acetaminophen 325 Mg Tablet) 650 mg PO Q6H PRN PRN Reason: Headache/Pain, Scale 1-10 Last Admin: 02/10/25 21:06 Dose: 650 mg Al Hydroxide/Mg Hydroxide (Magnesium Hydrox/Alum Hydrox 30 Ml Oral.Susp) 30 ml PO Q6H PRN PRN Reason: Heartburn/Nausea Aripiprazole (Aripiprazole 10 Mg Tablet) 10 mg PO BEDTIME CLIFF Last Admin: 02/10/25 21:07 Dose: 10 mg Benzocaine (Throat Lozenge, Medicated Lozenge) 1 lozenge MUCOUS MEM Q2H PRN PRN Reason: Sore Throat Furosemide (Furosemide 20 Mg Tablet) 20 mg PO DAILY [facility]; Protocol Last Admin: 02/11/25 08:32 Dose: 20 mg Magnesium Hydroxide (Milk Of Magnesia 30 Ml Oral.Susp) 30 ml PO DAILY PRN PRN Reason: Constipation Last Admin: 02/11/25 10:40 Dose: 30 ml Methadone HCl (Methadone Hcl 20 Mg/2 Ml Oral.Conc) 60 mg PO DAILY@0800 [facility] Last Admin: 02/11/25 07:51 Dose: 60 mg Nicotine (Nicotine 21 Mg Patch.Td24) 21 mg TRANSDERMA DAILY [facility] Last Admin: 02/11/25 08:32 Dose: 21 mg Nicotine Polacrilex (Nicotine Polacrilex 2 Mg Gum) 4 mg BUCCAL Q2H PRN PRN Reason: Nicotine Cravings Ondansetron HCl (Ondansetron Odt 4 Mg Tab.Rapdis) 4 mg TRANSLINGU Q6H PRN PRN Reason: Nausea and Vomiting Quetiapine Fumarate (Quetiapine Fumarate 25 Mg Tablet) 25 mg PO BID PRN PRN Reason: anxiety, agitation Last Admin: 02/10/25 21:07 Dose: 25 mg Trazodone HCl (Trazodone Hcl 100 Mg Tablet) 100 mg PO BEDTIME PRN PRN Reason: Insomnia Last Admin: 02/10/25 23:28 Dose: 100 mg Allergies Allergies Allergy/AdvReac Type Severity Reaction Status Date / Time codeine (CODEINE) Allergy Unknown HIVES Verified 02/01/25 11:03 Penicillins Allergy Unknown RASH Verified 02/02/25 11:19 Assessment & Plan Assessment & Plan (1) Bipolar affective, depress, severe: Status: Acute Code(s): F31.4 - Bipolar disorder, current episode depressed, severe, without psychotic features (2) Opioid use disorder: Status: Acute Code(s): F11.90 - Opioid use, unspecified, uncomplicated Plan 59-year-old female, voluntary admission for evaluation of depression, inability to care for self, opioid use disorder in this context of significant psychosocial stressors. No outpatient providers. Eager for engagement help. Currently not in active opiate withdrawals. [place] [facility] [place]. Patient Is open to substance rehab program. Plan Patient on 5 minute checks for safety. Admitted to M3. CV. Work with treatment team to do collateral for CSS/CCS if possible for aftercare. Refer to patient to administration specialist: patient has been seen by Addiction team. Would like and open for penitentiary tx program for aftercare. Health Concerns:Hepatitis-C, malnutrition, opiate dependence Continue opiate replacement therapy, encourage p.o. intake, nutritional supplement, outpatient follow up for hepatitis-C treatment 02/05:methadone [Methadose] 10 mg/mL Concentrate methadone [Methadose] 10 mg/mL Concentrate : 10 mg PO DAILY PRN (Reason: Opiate Withdrawal). lorazepam 1 mg Tablet : 1 mg PO TID PRN (Reason: Anxiety) potassium, sodium phosphates [Phos-NaK] 280-160-250 mg Powder In Packet : 1 packet PO DAILY magnesium oxide 400 mg magnesium capsule: 400 mg PO DAILY losartan 25 mg Tablel: 25 mg PO DAILY. Start Latuda 20mg daily with food at 1700. Edut would like to restart on Latuda (trial of Marcy, Depakote, Seroquel) for mood/bipolar. 02/06: Active on unit. patient reports feeling depressed ; pt stated, it's been a tough year with everything. I know I need to look into bereavement groups . Patient reports she is currently not interested in attending a substance abuse program; pt stated, I feel like going to meetings daily are much more helpful than programs . denies SI/HI/VH/AH. Pt reports having moments of landon then feeling low; discussed starting on Abilify; risks/benefits reviewed, pt agreed to trial. 02/07: Active on unit. attending groups. patient continues to reports feeling anxious and depressed ; she reports waking up multiple times throughout the night. Per nursing, slept 8 hours. denies SI/HI/VH/AH. Start: Abilify 5mg PO bedtime. Increase Trazodone to 100mg PO bedtime PRN insomnia. 02/08: I slept well for the first time last night. States for several years it has been difficult to sleep for more than 6 hours per night. Denies SI,HI,AH,VH. Participating in the milieu and in groups Reports anxiety, hydroxyzine not helpful. Reports this caused nausea, tremor, and dryness Review of medications, will increase Abilify to 10 mg to assist with sx mgt. Notified after meeting with pt that she was requesting a prn for anxiety- Quetiapine 25 mg bid prn ordered. Discussed the of her daughter on 05/17 and her grandchildren. Discussed questions about [employer]- will ask to see financial counseling. 02/09: continue current management and treatment plan. 02/10: Restart Lasix 20 mg daily. Otherwise continue current management and treatment plan. 02/11: Active on unit. social with peers. attending groups. Patient reports she continues to feel depressed but has improved since admission. denies SI/HI/VH/AH. Patient reports she plans on following up with his outpatient providers and focusing on her sobriety. Patient educated on: diagnosis and medication risk/benefits Reason for continued inpatient stay Substantial Risk for: stable for discharge Time Spent With Patient Time: Total time managing care of this patient today _20___ minutes.
[2025-02-11 20:00] VITALS: BP 116/74; PULSE 95; RESP 16; TEMP 36.3; O2SAT 95
[2025-02-11] MEDS: Throat Lozenge, Medicated LOZENGE 1 LOZENGE MUCOUS MEM (23:04)
[2025-02-12 08:00] VITALS: BP 130/74; PULSE 84; RESP 16; TEMP 36.5; O2SAT 96
[2025-02-12] MEDS: methADONE HCl 20 MG/2 ML ORAL.CONC 60 MG PO (08:03)
[2025-02-12] MEDS: Naloxone HCl Nasal TAKE HOME 4 MG SPRAY 8 MG NOSTRILALT (08:03)
--- NOTE | 2025-02-12 09:59 | PM.PSYDC ---
DS: Providers Provider Date of Service: 02/12/25 Date of admission: 02/05/25 21:23 Date of discharge: 02/12/25 Primary care physician: None Physician Admitting clinician: Josefa Meyer Attending physician on admission: Kin Walter Attending physician on discharge: Kin Walter Discharging clinician: Stacey Patten DS: Diagnosis Discharge Diagnosis (1) Bipolar affective, depress, severe: Status: Acute (2) Opioid use disorder: Status: Acute DS: Medications Discharge Medications Home Medications: Previous Rx's ?Medication ?Instructions ?Recorded aripiprazole 10 mg tablet 10 mg PO BEDTIME 30 days #30 tabs 02/11/25 furosemide 20 mg tablet 20 mg PO DAILY 7 days #7 tabs 02/11/25 methadone 10 mg/mL oral 60 mg (6 mL) PO DAILY@0800 #0 mL 02/11/25 concentrate (Methadose) quetiapine 25 mg tablet 25 mg PO BID PRN anxiety, 02/11/25 agitation 30 days #60 tabs trazodone 100 mg tablet 100 mg PO BEDTIME PRN Insomnia 7 02/11/25 days #7 tabs Mental Status Exam Mental Status Exam Narrative: Pt is alert and oriented; behavior is cooperative and calm; dressed in casual attire; mood is described as good ; eye contact appropriate; Speech is normal rate, volume and not pressured; thought process is organized; Thought content is on tx/discharge; denies SI/HI/VH/AH. Data Data Completed and Pending Completed studies during hospitalization [Text1]: 02/06/25 07:52 Sodium 133 L Potassium 4.6 Chloride 104 Carbon Dioxide 22 Anion Gap 12 BUN 17 H Creatinine 0.76 Estim Creat Clear Calc 74.4 Estimated GFR > 60 Random Glucose 113 Estimat Average Glucose 114 Hemoglobin A1c % 5.6 Calcium 8.9 Total Bilirubin 0.5 AST 66 H ALT 42 H Alkaline Phosphatase 126 H Total Protein 7.8 Albumin 3.3 L Triglycerides 105 Cholesterol 150 LDL Cholesterol, Calc 76 HDL Cholesterol 53 DS: Summary Hospital Course Hospital Course: Per psychiatric admitting note on 02/02/25: 59-year-old female past medical history significant for anxiety, depression, substance use disorder who presents to the emergency department with anxiety, depression status post losing her daughter, she tells me that her daughter recently passed secondary to cancer. Since then she has been using drugs she reports using heroin 1-2 bundles per day she last use this morning. She also reports she has been having lower extremity swelling it worsens throughout the day and it is present to bilateral lower extremities. She denies suicidal or homicidal ideation. Denies auditory and visual hallucinations. Per care team note on 02/01/25: Lost only child after 5 year cancer padilla. Now has custody of 2 grandchildren aged 14 and 10. Relapsed 6 weeks ago after being sober since 2002. No outpatient services. Per Hospital note on 02/05/25: after admitted to on 10/02/2024 night, subsequently started to have symptoms of nausea vomiting and diarrhea attributed to opiate withdrawal. She was started on methadone but continued to have symptoms. At about 08:00 on 02/03/2025 rapid response called for episode of unresponsiveness. Patient has been feeling lightheaded and weak all day and then laid down on her bed. Patient quickly regained consciousness, continues to feel weak and lightheaded. Workup including labs, EKG ordered and is pending. On 02/05/25: Patient was admitted for episode of unresponsiveness likely due to acute toxic metabolic encephalopathy and dehydration from nausea and vomiting diarrhea due to opiate dependence with withdrawal and addition of psychiatric meds as well as moderate protein calorie malnutrition with acute symptomatic hypophosphatemia and hypomagnesemia. She was treated with methadone, IV fluids, electrolyte replacement. Symptoms resolved. Patient noted to have elevated BNP, echo which showed normal EF and grade 1 diastolic dysfunction, likely elevated BNP is secondary to malnutrition not fluid overload. Patient noted to be hypertensive and she will be started on losartan. On presentation patient had pancytopenia but this resolved. She was also noted to have transaminitis given history of IV drug use was screened for HIV and hepatitis-C, HIV was negative but patient did test positive for HCV, viral load and genotype are pending and patient should follow up outpatient for treatment. Patient is now medically stable was seen by care team who recommended inpatient psychiatric admission. On M3 02/05/25: patient denies SI/SIB/HI/AVH. Denies SIB hx. Denies SI hx. Denies suicide attempts. Report anxiety and depression an 8-9/10 prior to admitted to the hospital. Report severe insomnia, poor sleep abut have been sliighly improve since admitted. Report chronic back pain which worse when ambulate. Requested walker for ambulating. Report mild nausea.Report hx of Bipolar, manic episodes, and insomnia. Patient is A+Ox4, wearing hospital attire, unkempt hair, depressed and anxious. Speech is soft, normal tone, volume, no manic behaviors. Fair eye contact. Thought process is organized and lenear. Thought content is with treatment, future focus. No SI/SIB/HI/AVH. Do not appear to be pyschotic. Do not make any delusional or paranoid statement. Judgment is poor, fair insight. 59-year-old female, voluntary admission for evaluation of depression, inability to care for self, opioid use disorder in this context of significant psychosocial stressors. No outpatient providers. Eager for engagement help. Currently not in active opiate withdrawals. [place] [facility] [place] Patient Is open to substance rehab program. Plan Patient on 5 minute checks for safety. Admitted to M3. CV. Work with treatment team to do collateral for CSS/CCS if possible for aftercare. Refer to patient to health services information specialist: patient has been seen by Addiction team. Would like and open for intermediate tx program for aftercare. Health Concerns:Hepatitis-C, malnutrition, opiate dependence Continue opiate replacement therapy, encourage p.o. intake, nutritional supplement, outpatient follow up for hepatitis-C treatment Start Latuda 20mg daily with food at 1700. Edut would like to restart on Latuda (trial of Brooks, Depakote, Seroquel) for mood/bipolar. Active on unit. patient reports feeling depressed ; pt stated, it's been a tough year with everything. I know I need to look into bereavement groups . Patient reports she is currently not interested in attending a substance abuse program; pt stated, I feel like going to meetings daily are much more helpful than programs . denies SI/HI/VH/AH. Pt reports having moments of landon then feeling low; discussed starting on Abilify; risks/benefits reviewed, pt agreed to trial. Active on unit. attending groups. patient continues to reports feeling anxious and depressed ; she reports waking up multiple times throughout the night. Per nursing, slept 8 hours. denies SI/HI/VH/AH. Start: Abilify 5mg PO bedtime. Increase Trazodone to 100mg PO bedtime PRN insomnia. I slept well for the first time last night. States for several years it has been difficult to sleep for more than 6 hours per night. Denies SI,HI,AH,VH. Participating in the milieu and in groups Reports anxiety, hydroxyzine not helpful. Reports this caused nausea, tremor, and dryness Review of medications, will increase Abilify to 10 mg to assist with sx mgt. Notified after meeting with pt that she was requesting a prn for anxiety- Quetiapine 25 mg bid prn ordered. Discussed the of her daughter on 05/17 and her grandchildren. Discussed questions about [employer]- will ask to see financial counseling. Restart Lasix 20 mg daily. Otherwise continue current management and treatment plan. Active on unit. social with peers. attending groups. Patient reports she continues to feel depressed but has improved since admission. denies SI/HI/VH/AH. Patient reports she plans on following up with his outpatient providers and focusing on her sobriety. Status at Discharge Cognitive/behavioral status at discharge: Patient has insight and demonstrates good judgment in terms of wanting to pursue treatment. Patient has a safety plan that includes presenting to the closest ER or calling 911 if feeling unsafe. Functional status at discharge: independent ambulation Overall status at discharge: patient is back to baseline Time Spent with Patient Time attestation: Total time managing care of this patient today _20___ minutes. Time spent: Less than 30 minutes Discharge Plan Discharge Anticipated Discharge Date/Time: 02/12/25 11:00 Patient Disposition: Home, Self-Care Discharge Diagnosis: Bipolar d/o, PTSD, opioid use d/o Referrals: Therapy & Psychiatry [Other] - 1 Week Referral Note: *You can present to the clinic above, Tuesday through Tuesday during the hours of 8am and 8pm, in order to obtain outpatient mental health providers. Therapy & Psychiatry [Other] - 1 Week Referral Note: *You can present to the clinic above, Tuesday through Tuesday between the hours of 10am and 12pm, in order to obtain outpatient mental health providers. Grief Support Group [Other] - 1 Week Referral Note: *Please contact Ligia to sign up at [email or web address] or call the [employer] at ([phone]). Bereavement Groups [Other] - 1 Week Referral Note: [facility] for children, teens and families [Other] - 1 Week Referral Note: *[facility] is a grief support center in [place], [place], offering various groups for children, teens, and adults experiencing grief, with specific support for those who have lost a parent or a child. You can find their contact information and program details on their website, and their services include ongoing support groups and individual counseling. Please reach out via phone or check out the facility in person. Methadone Maintenance (MAT) [Other] - 02/13/25 Referral Note: *Your paperwork has been sent over to the clinic. Please bring your last dose letter with you as well for dosing. [facility] [Provider Group] - 1 Week Referral Note: 02-11-25 [facility] was added to patients chart. Please call [phone] to schedule a follow up appt within 7-10 days of discharge. No release or PCP on file. Discharge Medications: New methadone [Methadose] 10 mg/mL Concentrate 60 mg PO DAILY@0800 Qty: 0 0RF Rx Instructions: Partial Fill upon patient request. aripiprazole 10 mg Tablet 10 mg PO BEDTIME 30 Days Qty: 30 0RF quetiapine 25 mg Tablet 25 mg PO BID PRN (Reason: anxiety, agitation) 30 Days Qty: 60 0RF trazodone 100 mg Tablet 100 mg PO BEDTIME PRN (Reason: Insomnia) 7 Days Qty: 7 0RF furosemide 20 mg Tablet 20 mg PO DAILY 7 Days Qty: 7 0RF Protocol: Hold for SBP< HOLD for SBP < : 90 Discontinued methadone [Methadose] 10 mg/mL Concentrate 50 mg PO DAILY@0800 Qty: 0 0RF Rx Instructions: Partial Fill upon patient request. methadone [Methadose] 10 mg/mL Concentrate 10 mg PO DAILY PRN (Reason: Opiate Withdrawal) Qty: 0 0RF Rx Instructions: Partial Fill upon patient request. lorazepam 1 mg Tablet 1 mg PO TID PRN (Reason: Anxiety) Qty: 0 0RF potassium, sodium phosphates [Phos-NaK] 280-160-250 mg Powder In Packet 1 packet PO DAILY Qty: 0 0RF magnesium oxide 400 mg magnesium capsule 400 mg PO DAILY Qty: 60 0RF losartan 25 mg Tablet 25 mg PO DAILY Qty: 0 0RF Protocol: Hold for SBP< HOLD for SBP < : 90 Discharge Orders: Discharge Order (Routine); Ordered 02/12/25 Ordered By: Stacey Patten Diet: Regular diet Activity on Discharge: As tolerated Stand Alone Forms: Patient Portal Discharge page, Community Support Print Language: Mexican Care Plan Goals: Maintain mood and safe behaviors Take medications as prescribed Continue to pursue sobriety Practice coping skills Continue with outpatient providers and reach out to them as needed Health Concerns: Mood stability and behaviors Sobriety Plan of Treatment: Follow up with your PCP, psychiatric provider and other outpatient providers regarding above concerns Take medications as prescribed Assessment: Patient has insight and demonstrates good judgment in terms of wanting to pursue treatment. Patient has a safety plan that includes presenting to the closest ER or calling 911 if feeling unsafe. Discharge Date/Time: 02/12/25 12:58
== END 2025-02-12 12:58 | disposition home or self-care (01) | DRG 885 ==
PROVIDERS: Admitting Provider Internal Medicine; Responsible Provider Registered Nurse; Visit Provider Psychiatry & Neurology Psychiatry
DX: F31.4 Bipolar disorder, current episode depressed, severe, without psychotic features (principal); F11.20 Opioid dependence, uncomplicated; E44.0 Moderate protein-calorie malnutrition; Z68.1 Body mass index [BMI] 19.9 or less, adult; B19.20 Unspecified viral hepatitis C without hepatic coma; I87.8 Other specified disorders of veins; I44.1 Atrioventricular block, second degree; F17.210 Nicotine dependence, cigarettes, uncomplicated; Z71.6 Tobacco abuse counseling; Z79.899 Other long term (current) drug therapy
CPT/HCPCS: 36415; 80053; 80061; 83036; 90656

== ENCOUNTER → 2025-02-05 21:23 | Outpatient (BNV) | payer OTHER, SELFPAY | PROVIDERS: Admitting Provider Internal Medicine; Responsible Provider Registered Nurse; Visit Provider Registered Nurse | DX: F31.4 Bipolar disorder, current episode depressed, severe, without psychotic features (principal); F11.90 Opioid use, unspecified, uncomplicated | CPT/HCPCS: 90792; 99231; 99232; 99238 ==

== ENCOUNTER → 2025-02-05 21:23 | Outpatient (BNV) | payer MEDICARE, SELFPAY | PROVIDERS: Admitting Provider Internal Medicine; Responsible Provider Registered Nurse; Visit Provider Nurse Practitioner Family | DX: B19.20 Unspecified viral hepatitis C without hepatic coma (principal) | CPT/HCPCS: 99221 ==